=== PATIENT | male | born 1940 | race Caucasian/White ===

== ENCOUNTER → 2023-08-27 10:21 | Outpatient (REF) | payer OTHER, SELFPAY | LOC: RCS 10:21 | PROVIDERS: ATTENDING PHYSICIAN Physician Assistant Medical | DX: R42 Dizziness and giddiness (principal); E78.2 Mixed hyperlipidemia; R73.03 Prediabetes | CPT/HCPCS: 93225; 93226 ==

== ENCOUNTER → 2023-09-04 11:10 | Outpatient (REF) | payer OTHER, SELFPAY | LOC: RAD 11:10 | PROVIDERS: ATTENDING PHYSICIAN Physician Assistant Medical | DX: R42 Dizziness and giddiness (principal); E78.2 Mixed hyperlipidemia; R73.03 Prediabetes | CPT/HCPCS: 93880 ==

== ENCOUNTER 2024-05-15 22:38 | Inpatient (IN) | payer OTHER, SELFPAY ==
--- NOTE | 2024-05-15 19:20 | ED.GENMED ---
ED Provider Triage
<Luisa Burns PA-C - Last Filed: 05/15/24 19:25>
-
Patient seen by provider in Triage?: Seen in Triage
Attestation: A medical screening examination has been initiated by a qualified medical provider. Based on the assessment performed at this time, it has been determined that an emergent medical condition may exist and the patient has been informed
that further medical evaluation and possible additional diagnostic testing may be needed.
HPI: 83yoM here with a temp of 100.2 at home today. Also having confusion and balance issues. Casas catheter in place x 1 month, reinserted several times after voiding trials. Current catheter placed 3 days ago. Urine culture sent yesterday at
urology office.
GENERAL: Alert , in no apparent distress
EYE: No visual abnormalities.
NECK: Trachea midline
ENT: No visible abnormalities.
LUNGS: No acute respiratory distress
NEUROLOGICAL: Alert and oriented
SKIN: Skin intact. No visible changes.
MUSCULOSKELETAL: Moving extremities normally
PSYCH: Normal and appropriate interaction.
This is a medical evaluation conducted in person to initiate diagnostic evaluation and provide initial therapeutics. Please see further documentation by the treating clinician.
CBC, CMP, lactate, UA ordered.
History of Present Illness
<Luisa Burns PA-C - Last Filed: 05/15/24 19:25>
General
Chief Complaint: Fever
Time Seen by Provider: 05/15/24 19:56
<Harry Li Jr., PA-C - Last Filed: 05/15/24 22:27>
General
Source: patient
Exam Limitations: none
Nursing documentation reviewed up to this point in time: agreed with
History of Present Illness
History of Present Illness:
83-year-old male with past medical history of chronic Casas and urinary retention, BPH, hypothyroidism presenting to the emergency department today with concerns of fever confusion fatigue worsening since last night. Temperature of 100.2 at home.
Has had many UTIs in the past. Has noticed some increasing cloudiness in changes to his urine today.
Past History
<Luisa Burns PA-C - Last Filed: 05/15/24 19:25>
Past History
ED Past Medical History: Cancer (Basal cell CA), Hypercholesterolemia, Hypothyroidism and Other (GI bleeding. Renal calculus)
ED Past Surgical History: Urological (Stone removed from bladder) and Other (Hernia); Negative Cardiac
Social History
Tobacco: Non-smoker
Alcohol: None
Drug: None
Personal:
Living: with family
Employment: Retired
Family History
Family History: Hypertension
Review of Systems
<Harry Li Jr., PA-C - Last Filed: 05/15/24 22:27>
Review of Systems
Allergies reviewed?: Yes
All Other Systems: ROS reviewed and negative except as documented in HPI and ROS
Phy Exam
<Harry Li Jr., PA-C - Last Filed: 05/15/24 22:27>
Physical Exam
Physical Exam:
GENERAL: Alert , in no apparent distress
EYE: pupils equal and reactive
NECK: Supple, no significant adenopathy.
ENT: o/p clr, mmm.
CARDIAC: Regular rate and rhythm .
LUNGS: Clear breath sounds bilaterally, no acute respiratory distress, no wheezes/rales/rhonchi
ABDOMEN: Casas in place cloudy dark yellow urine soft, without focal tenderness, no r/g, no cvat
NEUROLOGICAL: Alert and oriented, no focal neuro deficits
SKIN: Warm and dry, skin intact.
MUSCULOSKELETAL: No edema, well perfused.
PSYCH: Normal and appropriate interaction.
Course
<Luisa Burns PA-C - Last Filed: 05/15/24 19:25>
Orders/Labs/Results
Orders:
Orders
05/15/24 19:37
Complete Blood Count/With Diff Urgent
Comprehensive Metabolic Panel Urgent
Lactate Level [Lactic Acid] Urgent
05/15/24 20:17
Urinalysis Reflex To Culture Urgent
Date Specimen was Collected: 05/15/24
Time Specimen was Collected: 19:59
Urine Microscopic Reflex Cult Urgent
Urine Culture Urgent
KEVIN Source: U
Specimen Description:
Date Specimen was Collected: 05/15/24
Time Specimen was Collected: 19:59
05/15/24 20:18
COVID-19 Antigen Urgent
Source: Nasal Swab
Influenza A+B Rapid Molecular Urgent
KEVIN Source: Nasal Swab
Specimen Description:
05/15/24 21:19
Urinalysis Reflex To Culture Urgent
Date Specimen was Collected: 05/15/24
Time Specimen was Collected: 21:17
Urine Microscopic Reflex Cult Urgent
Urine Culture Urgent
KEVIN Source: U
Specimen Description:
Date Specimen was Collected: 05/15/24
Time Specimen was Collected: 21:17
05/15/24 21:42
Cefepime HCl [Maxipime] 2,000 mg IV NOW STA
05/15/24 22:30
0.9% Sodium Chloride 1000 ml [Nss] 1,000 ml IV 100 mls/hr
Abnormal Lab Results
05/15/24 05/15/24 05/15/24
19:37 20:17 21:19
WBC 14.0 H 10^3/uL
(4.8-10.8)
RBC 3.43 L 10^6/uL
(4.70-6.10)
Hgb 11.2 L g/dL
(13.0-18.0)
Hct 34.8 L %
(39.0-52.0)
MCV 101.5 H fL
(80.0-94.0)
MCH 32.7 H pg
(27.0-31.0)
MCHC 32.2 L g/dL
(33.0-37.0)
Abs Immat Gran (auto) 0.1 H 10^3/uL
(0-0.05)
Absolute Neuts (auto) 11.1 H 10^3/uL
(1.4-6.5)
Absolute Monos (auto) 1.1 H 10^3/uL
(0.1-0.6)
Neutrophils % 79.4 H %
(42.2-75.2)
Lymphocytes % 10.5 L %
(20.5-51.1)
Creatinine 1.4 H mg/dL
(0.7-1.3)
Glucose 142 H mg/dl
(70-99)
Ur Occult Blood Reflex 4+ A 3+ A
(Negative) (Negative)
Urine Nitrite (Reflex) Positive A
(Negative)
Leukocyte Esterase Rfl 2+ A 2+ A
(Negative) (Negative)
Urine RBC 3-6 A /HPF
(0-2)
Urine WBC (Reflex) 90-100 A /HPF >100 A /HPF
(0-5) (0-5)
Urine Bacteria (Reflex) Many A
(Negative)
Urine Albumin (Reflex) 2+ A 1+ A
(Neg - Trace) (Neg - Trace)
05/15/24 19:37
05/15/24 19:37
Vital Signs
Initial and Last Documented VS:
Initial Vital Signs
Temp Pulse Resp BP Pulse Ox
98.3 F 71 16 120/61 98
05/15/24 19:21 05/15/24 19:21 05/15/24 19:21 05/15/24 19:21 05/15/24 19:21
Last Documented Vital Signs
Temp Pulse Resp BP Pulse Ox
98.3 F 66 18 99/63 97
05/15/24 19:21 05/15/24 22:15 05/15/24 22:15 05/15/24 22:00 05/15/24 22:15
<Harry Li Jr., PA-C - Last Filed: 05/15/24 22:27>
Orders/Labs/Results
Orders:
Orders
05/15/24 19:37
Complete Blood Count/With Diff Urgent
Comprehensive Metabolic Panel Urgent
Lactate Level [Lactic Acid] Urgent
05/15/24 20:17
Urinalysis Reflex To Culture Urgent
Date Specimen was Collected: 05/15/24
Time Specimen was Collected: 19:59
Urine Microscopic Reflex Cult Urgent
Urine Culture Urgent
KEVIN Source: U
Specimen Description:
Date Specimen was Collected: 05/15/24
Time Specimen was Collected: 19:59
05/15/24 20:18
COVID-19 Antigen Urgent
Source: Nasal Swab
Influenza A+B Rapid Molecular Urgent
KEVIN Source: Nasal Swab
Specimen Description:
05/15/24 21:19
Urinalysis Reflex To Culture Urgent
Date Specimen was Collected: 05/15/24
Time Specimen was Collected: 21:17
Urine Microscopic Reflex Cult Urgent
Urine Culture Urgent
KEVIN Source: U
Specimen Description:
Date Specimen was Collected: 05/15/24
Time Specimen was Collected: 21:17
05/15/24 21:42
Cefepime HCl [Maxipime] 2,000 mg IV NOW STA
05/15/24 22:30
0.9% Sodium Chloride 1000 ml [Nss] 1,000 ml IV 100 mls/hr
Abnormal Lab Results
05/15/24 05/15/24 05/15/24
19:37 20:17 21:19
WBC 14.0 H 10^3/uL
(4.8-10.8)
RBC 3.43 L 10^6/uL
(4.70-6.10)
Hgb 11.2 L g/dL
(13.0-18.0)
Hct 34.8 L %
(39.0-52.0)
MCV 101.5 H fL
(80.0-94.0)
MCH 32.7 H pg
(27.0-31.0)
MCHC 32.2 L g/dL
(33.0-37.0)
Abs Immat Gran (auto) 0.1 H 10^3/uL
(0-0.05)
Absolute Neuts (auto) 11.1 H 10^3/uL
(1.4-6.5)
Absolute Monos (auto) 1.1 H 10^3/uL
(0.1-0.6)
Neutrophils % 79.4 H %
(42.2-75.2)
Lymphocytes % 10.5 L %
(20.5-51.1)
Creatinine 1.4 H mg/dL
(0.7-1.3)
Glucose 142 H mg/dl
(70-99)
Ur Occult Blood Reflex 4+ A 3+ A
(Negative) (Negative)
Urine Nitrite (Reflex) Positive A
(Negative)
Leukocyte Esterase Rfl 2+ A 2+ A
(Negative) (Negative)
Urine RBC 3-6 A /HPF
(0-2)
Urine WBC (Reflex) 90-100 A /HPF >100 A /HPF
(0-5) (0-5)
Urine Bacteria (Reflex) Many A
(Negative)
Urine Albumin (Reflex) 2+ A 1+ A
(Neg - Trace) (Neg - Trace)
05/15/24 19:37
05/15/24 19:37
Vital Signs
Initial and Last Documented VS:
Initial Vital Signs
Temp Pulse Resp BP Pulse Ox
98.3 F 71 16 120/61 98
05/15/24 19:21 05/15/24 19:21 05/15/24 19:21 05/15/24 19:21 05/15/24 19:21
Last Documented Vital Signs
Temp Pulse Resp BP Pulse Ox
98.3 F 66 18 99/63 97
05/15/24 19:21 05/15/24 22:15 05/15/24 22:15 05/15/24 22:00 05/15/24 22:15
<Harry Li Jr., PA-C - Last Filed: 05/15/24 22:27>
MDM/Problems Addressed
MDM/Problems Addressed:
83-year-old male presenting to the emergency department today with concerns of fever at home confusion. Vital signs normal on arrival white count of 14 with left shift. Slight elevation of creatinine level from baseline this typically 1.1 today
1.4. Initial urinalysis appears consistent with infection. Casas was replaced. Repeated urine sent still appears infected we will start IV antibiotics considering patient's systemic symptoms confusion for IV antibiotics and monitoring overnight.
<Harry Li Jr., PA-C - Last Filed: 05/15/24 22:27>
*Critical Care Note
Total Time (30-74mins, 75-104mins- exclusive of procedures): Not Applicable
ED Attending Note
<Luisa Burns PA-C - Last Filed: 05/15/24 19:25>
-
Portions of this chart may have been created with voice recognition software.� Occasional wrong word or��sound alike� substitutions may have occurred due to the inherent limitations of voice recognition software.
Discharge Plan
Departure
Patient Disposition: Admit
Date of Disposition: 05/15/24
Time of Disposition: 22:27
Admit to: Med/Surg
Admit to doctor: Baldo
Presentation/result/management discussed w/ accepting MD/DO: Hospitalist
Patient with high blood pressure during this ER visit?: No
Condition: Good
Covid-19: Not Applicable
Discharge Problem:
Acute UTI
Prescriptions:
No Action
atorvastatin [Lipitor] 10 MG tablet
10 mg PO HS
sennosides [senna] 8.6 mg Tablet
8.6 mg PO Q48H
donepezil 10 mg Tablet
10 mg PO HS
cyanocobalamin (vitamin B-12) 1,000 mcg Tablet
1,000 mcg PO DAILY
Theragen Tablet
1 tab PO DAILY
ciprofloxacin HCl [Cipro] 500 mg Tablet
500 mg PO BID
levothyroxine 125 mcg Tablet
125 mcg PO HS
lansoprazole [Prevacid] 30 mg Capsule,Delayed Release(Dr/Ec)
30 mg PO DAILY
Referrals:
Esequiel Singh MD [Family Provider] -
Interventions
Interventions:
*Risk Screen - Suicide Last Done: 05/15/24 19:21
*General Assessment Last Done: 05/15/24 19:21
*Neglect/Abuse Screening Last Done: 05/15/24 19:21
ED- Fall Risk Assessment Last Done: 05/15/24 20:23
*ED COVID-19 Vaccine History Last Done: 05/15/24 19:21
ED- Neurological Assessment Last Done: 05/15/24 20:23
ED-Skin Assessment Last Done: 05/15/24 20:23
Discharge Date and Time
Print Language: SPANISH
[2024-05-15 19:21] VITALS: BP 120/61
[2024-05-15 19:46] LABS: % Basophils 0.4 % (0-2); % Eosinophils 1.4 % (0-6); % Immature Granulocytes 0.4 % (0-0.5); % Lymphocytes 10.5 % (20.5-51.1); % Monocytes 7.9 % (1.7-9.3); % Neutrophils 79.4 % (42.2-75.2); Absolute Basophils 0.1 10^3/uL (0-0.2); Absolute Eosinophils 0.2 10^3/uL (0-0.7); Absolute Immature Granulocytes 0.1 10^3/uL (0-0.05); Absolute Lymphocytes 1.5 10^3/uL (1.2-3.4); Absolute Monocytes 1.1 10^3/uL (0.1-0.6); Absolute Neutrophils 11.1 10^3/uL (1.4-6.5); Hematocrit 34.8 % (39.0-52.0); Hemoglobin 11.2 g/dL (13.0-18.0); Mean Corp Hgb Conc. 32.2 g/dL (33.0-37.0); Mean Corpuscular Hgb 32.7 pg (27.0-31.0); Mean Corpuscular Volume 101.5 fL (80.0-94.0); Mean Platelet Volume 9.3 fL (7.4-10.4); Nucleated Red Blood Cells % 0 % (-); Platelet Count 258 10^3/uL (130-400); Red Blood Cell Count 3.43 10^6/uL (4.70-6.10); Red Cell Dist. Width 12.7 % (11.5-14.5)
[2024-05-15 19:55] LABS: Lactic Acid 1.2 mmol/L (0.7-2.0)
[2024-05-15 20:04] LABS: ALT (SGPT) 13 U/L (0-50); AST (SGOT) 20 U/L (17-59); Albumin 3.7 g/dl (3.5-5.0); Alkaline Phosphatase 107 U/L (38-126); Blood Urea Nitrogen 20 mg/dl (9-20); Calcium 8.8 mg/dl (8.4-10.2); Carbon Dioxide 30 mmol/L (22-30); Chloride 99 mmol/L (98-107); Glucose 142 mg/dl (70-99); Potassium 4.3 mmol/L (3.5-5.1); Sodium 136 mmol/L (135-145); Total Bilirubin 0.5 mg/dl (0.2-1.3); Total Protein 6.8 g/dl (6.3-8.2); eGFR 49.56
[2024-05-15 20:09] VITALS: BP 101/55; BMI 26.4
[2024-05-15 20:29] LABS: Urine Albumin 2+ (Neg - Trace); Urine Bilirubin Negative (Negative); Urine Character Slightly Cloudy (Clear); Urine Color Yellow; Urine Glucose Negative (Negative); Urine Ketone Negative (Negative); Urine Leukocyte 2+ (Negative); Urine Nitrite Positive (Negative); Urine Occult Blood 4+ (Negative); Urine Urobilinogen Negative (Neg - 1+)
[2024-05-15 20:35] LABS: Urine Squamous Cell 0-2 /LPF (Few)
[2024-05-15 20:36] LABS: Urine Bacteria Many (Negative); Urine White Cell 90-100 /HPF (0-5)
[2024-05-15 20:50] LABS: COVID-19 Antigen Negative (Negative)
[2024-05-15 21:00] VITALS: BP 100/57
[2024-05-15 21:28] LABS: Urine Albumin 1+ (Neg - Trace); Urine Bilirubin Negative (Negative); Urine Character Slightly Cloudy (Clear); Urine Color Yellow; Urine Glucose Negative (Negative); Urine Ketone Negative (Negative); Urine Leukocyte 2+ (Negative); Urine Nitrite Negative (Negative); Urine Occult Blood 3+ (Negative); Urine Specific Gravity 1.015 (<1.030); Urine Urobilinogen Negative (Neg - 1+)
[2024-05-15 21:48] LABS: Urine White Cell >100 /HPF (0-5)
--- NOTE | 2024-05-15 21:58 | HPS.HSE ---
Addendum entered and electronically signed by Chicho Bland DO 05/15/24 23:41:
Patient seen and examined independently. Agree with findings and plan as set forth by Soumya Cortez PA-C.
Patient is an 83y M with PMH significant for BPH, dementia and hypothyroidism who presents to ED for evaluation of fever and confusion. History obtained from patient and his at the bedside. Patient admitted to [place] in April due to
ear cellulitis. That hospitalization was complicated by urinary retention and Casas was placed. He was then admitted to [facility] for fecal impaction - Casas was maintained. He was seen in local Urology office Saturday and had a failed voiding trial
with removal and subsequent replacement of Casas.
Last PM, patient became significantly confused and disoriented. Today he remained somewhat confused and his noted a temperature at home of 100.2 prompting them to present to the ED for further evaluation.
Casas was exchanged in the ED here and is currently draining cloudy urine with sediment.
Patient is flushed appearing, but awake and alert.
Ass:
CAUTI
Acute TME secondary to the above
BPH
Senile Dementia
Hypothyroidism
Plan:
Admit for further evaluation and treatment.
IV abx and follow-up culture data.
Casas was exchanged in the ED.
IVF support.
Follow fever curve.
Follow for clinical improvement.
Close observation / fall precautions given baseline dementia and propensity to 'get up' according to his .
Maintain Casas catheter and follow-up with Urology as an outpatient.
Original Note:
Family Physician
-
Family Physician: Esequiel Singh
Chief Complaint
-
Fever and Confusion
History of Present Illness
Patient is an 83 y/o male past medical history of dementia, and BPH who presents with fever and confusion. Additional history is obtained from patient's at the bedside. Patient was admitted to [facility] in early April with left ear
cellulitis following an extensive Moh's surgery. During that hospitalization patient developed urinary retention and was discharged with a Casas. Shortly afterwards patient was admitted to [facility] due to fecal impaction. Since that
hospitalization patient has seen his Urologist, Dr. Ochoa, and has had several unsuccessful voiding trails, most recently earlier this week. Last evening patient developed increasing confusion, and today and low grade fever 100.2F prompting his
to bring him to the emergency department for evaluation.
Medical History
Past Medical History
Past Medical History: Reports Other
Additional Past Medical History:
Dementia
Hyperlipidemia
Hypothyroidism
Nephrolithiasis
Bladder Stone
BPH
Recurrent Urinary Retention
GERD
Past Surgical History: Reports Other
Additional Past Surgical History:
Left Ureteral Stone Lithotripsy
TURP
Cystolitholapaxy
Right Inguinal Hernia Repair
Social History
Tobacco: Non-smoker
Drug: None
Personal:
Employment: Retired
Family History
Family History: Not pertinent
Allergies / Home Medications
Allergies reflects when Allergies were last updated in [employer].
Home Medications with original date entered in [employer]
Allergy/Medication List:
Allergies
Allergy/AdvReac Type Severity Reaction Status Date / Time
sulfamethoxazole Allergy Unknown Verified 05/15/24 19:26
[From Bactrim]
trimethoprim [From Bactrim] Allergy Unknown Verified 05/15/24 19:26
Home Medications
atorvastatin 10 mg tablet (Lipitor) 10 mg PO HS High cholesterol 08/31/20
ciprofloxacin HCl 500 mg tablet (Cipro) 500 mg PO BID 05/15/24
cyanocobalamin (vitamin B-12) 1,000 mcg tablet 1,000 mcg PO DAILY 05/15/24
donepezil 10 mg tablet 10 mg PO HS 05/15/24
lansoprazole 30 mg capsule,delayed release (Prevacid) 30 mg PO DAILY 05/15/24
levothyroxine 125 mcg tablet 125 mcg PO HS 05/15/24
sennosides 8.6 mg tablet (senna) 8.6 mg PO Q48H 05/15/24
therapeutic multivitamin 1 tab PO DAILY 05/15/24
Review of Systems
-
Unable to obtain full review of systems at this time due to: Dementia
Respiratory: Denies Cough or Trouble Breathing
Cardiac: Denies Chest Pain or Palpitations
: Reports See HPI
Physical Exam
Vital Signs
Vital Signs
Temp Pulse Resp BP Pulse Ox
98.3 F 71 29 101/55 95
05/15/24 19:21 05/15/24 20:15 05/15/24 20:15 05/15/24 20:09 05/15/24 20:15
Physical Exam
General: Comfortable, Conversant and Other (Appears flushed)
HEENT: Anicteric and Moist mucous membranes
Respiratory: Clear and Non Labored Respirations
Cardiac: S1/S2 and Regular Rhythm
GI: Soft and Non Tender
Genito-urinary: Casas (Cloudy urne)
Musculoskeletal: No Clubbing, No Cyanosis and No Edema
Skin: Warm and Dry
Neuro: Awake, Alert, Oriented and Nonfocal/grossly intact
Psych: Calm
Laboratory Results
-
05/15/24 19:37
05/15/24 19:37
Laboratory Results
Lactic Acid 1.2 mmol/L (0.7-2.0) 05/15/24 19:37
Total Bilirubin 0.5 mg/dl (0.2-1.3) 05/15/24 19:37
AST 20 U/L (17-59) 05/15/24 19:37
ALT 13 U/L (0-50) 05/15/24 19:37
Alkaline Phosphatase 107 U/L (38-126) 12/13/24 19:37
Data Reviewed
-
Lab Data: Labs Reviewed by me
Impression/Plan
-
TME secondary to Catheter Associated Urinary Tract Infection
-Continue Cefepime
-Await urine culture
Dementia
-Continue Aricept
-Monitor for mood/behavior changes during hospitalization
Hyperlipidemia
-Continue atorvastatin
Hypothyroidism
-Continue levothyroxine
DVT proph: Lovenox
Code Status: Full Code
[2024-05-15 22:00] VITALS: BP 99/63
[2024-05-15] MEDS: MAXIPIME 2000 MG IV (22:07)
[2024-05-15] MEDS: NSS 1000 IV (22:29)
[2024-05-15] MEDS: TYLENOL 650 MG PO (22:43)
[2024-05-15 23:00] VITALS: BP 129/61
[2024-05-15 23:52] VITALS: BP 143/74
[2024-05-15 23:58] VITALS: BMI 25.0
[2024-05-16] MEDS: SENOKOT 8.6 MG PO (00:23)
--- NOTE | 2024-05-16 01:24 | PTCARENOTE ---
Received patient from ED via stretcher with spouse at bedside. Telemetry orders> NSR on monitor, afebrile, HR 69, RR 18, BP 143/74, pox 93% room air. No c/o pain. AAOx3 PMH dementia-bed alarm placed. IVF infusing through #20 RAC. Indwelling villareal
catheter draining yellow urine. PMH and medications reviewed by this RN and patient/ spouse. Plan of care discussed and all questions answered. Patient oriented to room. Call new within reach.
[2024-05-16 07:00] VITALS: BP 107/52
[2024-05-16 07:55] LABS: Hematocrit 34.2 % (39.0-52.0); Mean Corp Hgb Conc. 32.2 g/dL (33.0-37.0); Mean Corpuscular Hgb 32.6 pg (27.0-31.0); Mean Corpuscular Volume 101.5 fL (80.0-94.0); Mean Platelet Volume 9.7 fL (7.4-10.4); Platelet Count 247 10^3/uL (130-400); Red Blood Cell Count 3.37 10^6/uL (4.70-6.10); Red Cell Dist. Width 12.6 % (11.5-14.5); White Blood Cell Count 9.9 10^3/uL (4.8-10.8)
[2024-05-16 08:27] LABS: Blood Urea Nitrogen 17 mg/dl (9-20); Calcium 8.8 mg/dl (8.4-10.2); Carbon Dioxide 27 mmol/L (22-30); Chloride 106 mmol/L (98-107); Estimated Creatinine Clearance 44 ml/min; Glucose 106 mg/dl (70-99); Potassium 4.4 mmol/L (3.5-5.1); Sodium 142 mmol/L (135-145); eGFR 59.63
[2024-05-16] MEDS: PROTONIX 40 MG PO (08:35)
[2024-05-16] MEDS: MAXIPIME 1000 MG IV ×2 (09:56→21:35)
[2024-05-16 11:00] VITALS: BP 147/77
[2024-05-16 12:32] VITALS: BP 119/63; BP 94/60; PULSE 70; O2SAT 99
[2024-05-16 12:36] VITALS: BP 119/63; BP 94/60; PULSE 70; O2SAT 99
--- NOTE | 2024-05-16 13:35 | W.PN.HOSP.TC ---
Today's Communication/Plan
-
Continue IV cefepime
Follow cultures
CBC and temperature
Assessment / Plan
Assessment / Plan
#CAUTI
#BPH s/p TURP
-Presented with altered mental status, leukocytosis, known chronic Casas
-Urinalysis with significant pyuria and other infectious markers present
-Casas catheter was exchanged in the ED after urine sample obtained
-Was started on IV cefepime empirically, CBC downtrending
-Urine cultures taken prior to antibiotics; results pending
-Continue IV cefepime, follow-up culture, trend CBC and temperature curve
#Toxic metabolic encephalopathy
-Highly likely related to CAUTI, altered mental status on arrival
-Patient seems much more oriented and alert today, states he does not remember much from yesterday
-Appears resolved
#Dyslipidemia
-No known history of ASCVD, Home meds include statin therapy
#Hypothyroidism
-Unclear etiology, medications include levothyroxine
-No signs or symptoms of thyroid dysfunction at this time
#Stage IIIa CKD
-Creatinine near 1 at baseline, creatinine clearance 44, EGFR 60
-No known association such as anemia, bone mineral disease, acidemia
-Had mildly elevated creatinine on arrival, back to baseline as of this morning
#Dementia
-Seems fairly mild, patient was able to hold conversation and seemed oriented
-Home medications include donepezil
DVT prophylaxis: Lovenox
Diet: Regular
CODE STATUS: Full code
Anticipated Discharge: 24 - 48 hours
Subjective/Interval History
-
Date of Service: May 16, 2024
Seen and examined at the bedside. No acute events reported overnight. AFVSS of this morning
Mental status seems improved, patient states he does not remember much from admission yesterday.
Denies any acute complaints.
Objective Data
-
Labs:
Laboratory Results
05/16/24
06:45
WBC 9.9
Hgb 11.0 L
Hct 34.2 L
Plt Count 247
Sodium 142
Potassium 4.4
Chloride 106
Carbon Dioxide 27
BUN 17
Creatinine 1.2
Glucose 106 H
Calcium 8.8
Vital Signs:
Vital Signs
Temp Pulse Resp BP Pulse Ox
97.9 F 63 18 147/77 95
05/16/24 11:00 05/16/24 11:00 05/16/24 11:00 05/16/24 11:00 05/16/24 11:00
I&O
05/15/24 05/16/24 05/17/24
06:59 06:59 06:59
Output Total 2750 / 2750
Balance -2750 / -2750
Review of Systems
-
History Source: Patient
All other systems: Reviewed and negative
Physical Exam
-
General: Well Developed, Well Nourished, No Apparent Distress and Comfortable
HEENT: Normocephalic, Atraumatic, Moist Mucous Membranes and Anicteric
Respiratory: Clear to Auscultation and Non Labored Respirations
Cardiac: Regular Rhythm and S1/S2; Negative Murmur, Rub or Gallop
GI: Soft, Nontender, Nondistended and Normal Bowel Sounds
Genito-urinary: No Costovertebral Tender, Clear Urine and Casas
Musculoskeletal: No Clubbing, No Cyanosis and No Edema
Skin: Warm, Dry and Normal Turgor; Negative Rash
Neuro: AO x 3 and Nonfocal/Grossly Intact
Psych: Calm
Data Reviewed
-
Labs: Labs Reviewed by me and Discussed with Patient
--- NOTE | 2024-05-16 14:49 | CM ---
manager study reviewed patient's chart and met with patient and patient was admitted from [facility] independent living, patient is independent with adl's and ambulation, patient has a cane and walker that he does not use. Patient is
current with [facility] visiting nurses, will send referral to resume visiting nurse services at discharge.
PCP: Dr. Singh
Pharmacy: [facility]
Plan; Home with [facility] visiting nurses
[place]
[phone]
[2024-05-16 14:57] VITALS: BP 109/66
[2024-05-16] MEDS: LOVENOX 40 MG SC (17:10)
[2024-05-16] MEDS: LIPITOR 10 MG PO (21:35)
[2024-05-16] MEDS: ARICEPT 10 MG PO (21:35)
[2024-05-16] MEDS: SYNTHROID 125 MCG PO (21:35)
[2024-05-16] MEDS: STERILE WATER FOR INJECTION 10 ML IV (21:36)
[2024-05-16 22:43] VITALS: BP 147/82
[2024-05-17 06:59] LABS: % Basophils 0.7 % (0-2); % Eosinophils 7.1 % (0-6); % Immature Granulocytes 0.3 % (0-0.5); % Lymphocytes 19.4 % (20.5-51.1); % Monocytes 8.5 % (1.7-9.3); Absolute Basophils 0.1 10^3/uL (0-0.2); Absolute Eosinophils 0.5 10^3/uL (0-0.7); Absolute Lymphocytes 1.4 10^3/uL (1.2-3.4); Absolute Monocytes 0.6 10^3/uL (0.1-0.6); Absolute Neutrophils 4.8 10^3/uL (1.4-6.5); Hematocrit 33.7 % (39.0-52.0); Mean Corp Hgb Conc. 32.6 g/dL (33.0-37.0); Mean Corpuscular Hgb 32.4 pg (27.0-31.0); Mean Corpuscular Volume 99.4 fL (80.0-94.0); Mean Platelet Volume 9.7 fL (7.4-10.4); Nucleated Red Blood Cells % 0 % (-); Platelet Count 274 10^3/uL (130-400); Red Blood Cell Count 3.39 10^6/uL (4.70-6.10); Red Cell Dist. Width 12.3 % (11.5-14.5); White Blood Cell Count 7.4 10^3/uL (4.8-10.8)
[2024-05-17 07:00] VITALS: BP 141/63
[2024-05-17 07:19] LABS: Blood Urea Nitrogen 19 mg/dl (9-20); Carbon Dioxide 29 mmol/L (22-30); Chloride 103 mmol/L (98-107); Estimated Creatinine Clearance 44 ml/min; Glucose 112 mg/dl (70-99); Potassium 4.1 mmol/L (3.5-5.1); Sodium 140 mmol/L (135-145); eGFR 59.63
[2024-05-17] MEDS: PROTONIX 40 MG PO (08:19)
[2024-05-17] MEDS: MAXIPIME 1000 MG IV ×2 (09:15→21:07)
[2024-05-17] MEDS: STERILE WATER FOR INJECTION 10 ML IV ×2 (09:16→21:07)
[2024-05-17 11:00] VITALS: BP 151/66
--- NOTE | 2024-05-17 11:26 | W.PN.HOSP.TC ---
Today's Communication/Plan
-
Continue IV cefepime and follow urine culture
Maintain Casas catheter
CBC and temperature
Assessment / Plan
Assessment / Plan
#CAUTI
#BPH s/p TURP
-Presented with altered mental status, leukocytosis, known chronic Casas
-Urinalysis with significant pyuria and other infectious markers present
-Casas catheter was exchanged in the ED after urine sample obtained
-Was started on IV cefepime empirically, CBC downtrending
-Urine cultures taken prior to antibiotics; results pending
-Continue IV cefepime, follow-up culture, trend CBC and temperature curve
#Toxic metabolic encephalopathy
-Highly likely related to CAUTI, altered mental status on arrival
-Patient seems much more oriented and alert today, states he does not remember much from yesterday
-Appears resolved
#Dyslipidemia
-No known history of ASCVD, Home meds include statin therapy
#Hypothyroidism
-Unclear etiology, medications include levothyroxine
-No signs or symptoms of thyroid dysfunction at this time
#Stage IIIa CKD
-Creatinine near 1 at baseline, creatinine clearance 44, EGFR 60
-No known association such as anemia, bone mineral disease, acidemia
-Had mildly elevated creatinine on arrival, back to baseline as of this morning
#Dementia
-Seems fairly mild, patient was able to hold conversation and seemed oriented
-Home medications include donepezil
DVT prophylaxis: Lovenox
Diet: Regular
CODE STATUS: Full code
Anticipated Discharge: Within 24 hours
Subjective/Interval History
-
Date of Service: May 17, 2024
Seen and examined at the bedside. No acute events reported overnight. AFVSS this
Leukocytosis resolved. Urine culture still pending. Patient asking to go home
Denies any acute complaint
Objective Data
-
Labs:
Laboratory Results
05/17/24
06:15
WBC 7.4
Hgb 11.0 L
Hct 33.7 L
Plt Count 274
Sodium 140
Potassium 4.1
Chloride 103
Carbon Dioxide 29
BUN 19
Creatinine 1.2
Glucose 112 H
Calcium 9.0
Vital Signs:
Vital Signs
Temp Pulse Resp BP Pulse Ox
98.3 F 74 18 141/63 97
05/17/24 07:00 05/17/24 07:00 05/17/24 07:00 05/17/24 07:00 05/17/24 08:25
I&O
05/16/24 05/17/24 05/18/24
06:59 06:59 06:59
Intake Total 600 / 600
Output Total 2750 / 2750 1050 / 1050
Balance -2750 / -2750 -450 / -450
Review of Systems
-
History Source: Patient
All other systems: Reviewed and negative
Physical Exam
-
General: Well Developed, Well Nourished, No Apparent Distress and Comfortable
HEENT: Normocephalic, Atraumatic, Moist Mucous Membranes and Anicteric
Respiratory: Clear to Auscultation and Non Labored Respirations
Cardiac: Regular Rhythm and S1/S2; Negative Murmur, Rub or Gallop
GI: Soft, Nontender, Nondistended and Normal Bowel Sounds
Genito-urinary: No Costovertebral Tender, Clear Urine and Casas
Musculoskeletal: No Clubbing, No Cyanosis and No Edema
Skin: Warm and Dry; Negative Rash
Neuro: AO x 3 and Nonfocal/Grossly Intact
Psych: Calm
Data Reviewed
-
Labs: Labs Reviewed by me, Discussed with Nurse and Discussed with Patient
[2024-05-17] MEDS: MIRALAX 17 GRAMS PO (12:37)
[2024-05-17 15:00] VITALS: BP 125/65
[2024-05-17] MEDS: BENADRYL 50 MG PO (15:48)
[2024-05-17] MEDS: LOVENOX 40 MG SC (17:03)
[2024-05-17] MEDS: SYNTHROID 125 MCG PO (21:05)
[2024-05-17] MEDS: LIPITOR 10 MG PO (21:05)
[2024-05-17] MEDS: ARICEPT 10 MG PO (21:05)
[2024-05-17] MEDS: SENOKOT 8.6 MG PO (21:07)
[2024-05-17 22:59] VITALS: BP 116/65
[2024-05-18 03:26] VITALS: BP 145/75
[2024-05-18 07:10] VITALS: BP 141/79
[2024-05-18 08:14] LABS: % Basophils 0.7 % (0-2); % Immature Granulocytes 0.4 % (0-0.5); % Lymphocytes 19.3 % (20.5-51.1); % Neutrophils 60.6 % (42.2-75.2); Absolute Basophils 0.1 10^3/uL (0-0.2); Absolute Eosinophils 0.7 10^3/uL (0-0.7); Absolute Lymphocytes 1.3 10^3/uL (1.2-3.4); Absolute Monocytes 0.6 10^3/uL (0.1-0.6); Absolute Neutrophils 4.2 10^3/uL (1.4-6.5); Hematocrit 35.1 % (39.0-52.0); Hemoglobin 11.5 g/dL (13.0-18.0); Mean Corp Hgb Conc. 32.8 g/dL (33.0-37.0); Mean Corpuscular Hgb 32.2 pg (27.0-31.0); Mean Corpuscular Volume 98.3 fL (80.0-94.0); Mean Platelet Volume 9.6 fL (7.4-10.4); Nucleated Red Blood Cells % 0 % (-); Platelet Count 287 10^3/uL (130-400); Red Blood Cell Count 3.57 10^6/uL (4.70-6.10); Red Cell Dist. Width 12.2 % (11.5-14.5); White Blood Cell Count 6.9 10^3/uL (4.8-10.8)
[2024-05-18] MEDS: PROTONIX 40 MG PO (08:22)
[2024-05-18 08:39] LABS: Blood Urea Nitrogen 16 mg/dl (9-20); Calcium 9.2 mg/dl (8.4-10.2); Carbon Dioxide 30 mmol/L (22-30); Chloride 102 mmol/L (98-107); Estimated Creatinine Clearance 44 ml/min; Glucose 106 mg/dl (70-99); Potassium 4.2 mmol/L (3.5-5.1); Sodium 140 mmol/L (135-145); eGFR 59.63
[2024-05-18] MEDS: STERILE WATER FOR INJECTION 10 ML IV ×2 (09:58→21:14)
[2024-05-18] MEDS: MAXIPIME 1000 MG IV ×2 (09:58→21:15)
[2024-05-18] MEDS: MIRALAX 17 GRAMS PO (10:04)
--- NOTE | 2024-05-18 11:04 | PHA.VAN.IN ---
Assessment
- Assessment
Renal Function: Appears similar to baseline
Concomitant Antimicrobials: cefepime
Plan
- Plan
Initial / Loading Dose: 2000mg - administration pending
Maintenance Regimen: dosing by level
Monitoring: random 05/19 600
Pharmacokinetics Vancomycin I
- -
Patient Age: 83
Patient Sex: Male
Vancomycin Day #: 1
Indication: Genito-Urinary Tract
Requesting Provider: Dr. Fields
Pertinent Antimicrobial Allergies:
sulfamethoxazole/trimethoprim - unknown
Height / Weight:
Height 5 ft 8 in
Actual Weight 74.616 kg
Pertinent Past Medical History: CKD
- Vital Signs / Lab Results
Temp Pulse Resp BP Pulse Ox
97.6 F 66 18 141/79 95
05/18/24 07:10 05/18/24 07:10 05/18/24 07:10 05/18/24 07:10 05/18/24 08:20
Lab Results - Hematology
05/15/24 05/16/24 05/17/24
19:37 06:45 06:15
WBC 14.0 H 9.9 7.4
05/18/24
07:32
WBC 6.9
Lab Results - Chemistry
05/15/24 05/16/24 05/17/24
19:37 06:45 06:15
BUN 20 17 19
Creatinine 1.4 H 1.2 1.2
Estimated Creat Clear 44 44
Albumin 3.7
05/18/24
07:32
BUN 16
Creatinine 1.2
Estimated Creat Clear 44
Albumin
05/15/24
19:37
Lactic Acid 1.2
Lab Results - Urine
05/15/24 05/15/24
20:17 21:19
Urine Nitrite (Reflex) Positive A Negative
Leukocyte Esterase Rfl 2+ A 2+ A
Urine WBC (Reflex) 90-100 A >100 A
Ur Squamous Epith Cells 0-2
Urine Bacteria (Reflex) Many A
Microbiology Results
05/15/24 21:19 Urine Culture - Preliminary
Urine Gram negative bacilli
Enterococcus species
--- NOTE | 2024-05-18 11:18 | W.PN.HOSP.TC ---
Today's Communication/Plan
-
consult ID
Assessment / Plan
Assessment / Plan
Assessment:
CAUTI POA
Hx of BPH s/p TURP
- chronic Casas exchanged in ER
- Culture growing gram negative bacilli and Enterococcus
- continue Cefepime, add Vancomycin. Consult ID
- supposedly planned for cystoscopy 05/25, likely will be deferred - TT'd to Dr. Ochoa
Toxic metabolic encephalopathy from UTI
Hx of Dementia - unknown subtype
- resolved, monitor
- continue donepezil
HLD
- statin
Hypothyroidism
- continue replacement
CKD stage 3a
DVT ppx: Lovenox
Code: Full
Anticipated Discharge: 24 - 48 hours
Subjective/Interval History
-
Date of Service: May 18, 2024
no complaints
Objective Data
-
Labs:
Laboratory Results
05/18/24
07:32
WBC 6.9
Hgb 11.5 L
Hct 35.1 L
Plt Count 287
Sodium 140
Potassium 4.2
Chloride 102
Carbon Dioxide 30
BUN 16
Creatinine 1.2
Glucose 106 H
Calcium 9.2
Vital Signs:
Vital Signs
Temp Pulse Resp BP Pulse Ox
97.6 F 66 18 141/79 95
05/18/24 07:10 05/18/24 07:10 05/18/24 07:10 05/18/24 07:10 05/18/24 08:20
I&O
05/17/24 05/18/24 05/19/24
06:59 06:59 06:59
Intake Total 600 / 600 360 / 360
Output Total 1050 / 1050 1750 / 1750
Balance -450 / -450 -1390 / -1390
Physical Exam
-
General: No Apparent Distress
HEENT: Normocephalic and Atraumatic
Respiratory: Negative Wheezes
Cardiac: Regular Rhythm and S1/S2
GI: Soft
Genito-urinary: No Costovertebral Tender
Musculoskeletal: No Edema
Neuro: AO x 3
Hematologic / Lymphatic: No Lymphadenopathy
Psych: Calm
Data Reviewed
-
Total Time Spent with Patient (in minutes): 44
Labs: Labs Reviewed by me
[2024-05-18] MEDS: VANCOCIN 540 MG IV (11:22)
[2024-05-18 11:42] VITALS: BP 131/70
--- NOTE | 2024-05-18 13:46 | CON.ID ---
Consultation
-
Date/Time Consultation Requested: 05/18/2024 1124
Date/Time Consultation Performed: 05/18/2024 1337
Requesting Provider: Dr. Fields
Performing Provider: Dr. Mancini
Reason for Consultation: CAUTI
Chief Complaint / Past History
History of Present Illness
Isrrael Lloyd is an 83-year-old man being evaluated at the request of Dr. Fields regarding a complicated urinary tract infection. History is obtained from chart review, along with patient interview.
The patient has a significant past medical history of chronic Casas catheter secondary to BPH and urinary retention and he presented to the ER on 05/15 secondary to fever, increasing confusion and fatigue over the prior 12 to 24 hours. He
reportedly had a temperature of 100.2 degrees at home. He has a history of many prior urinary tract infections in the past. ER notes indicate that increased cloudiness in urine was noted.
At admission, he was found to have a leukocytosis. He was placed on empiric antibiotics (cefepime). Today, urine cultures have revealed the presence of GNR's and Enterococcus. Infectious Diseases is asked to comment upon further antimicrobial
therapy. Since admission, the patient has had his chronic Casas changed.
Past History
Additional Past Medical History:
Dementia
Dyslipidemia
Hypothyroidism
Hx GI bleed
Nephrolithiasis / Bladder stone
Basal cell carcinoma
Additional Past Surgical History:
Left Ureteral Stone Lithotripsy
TURP
Cystolitholapaxy
Right Inguinal Hernia Repair
Allergy History:
sulfamethoxazole [From Bactrim] Allergy (Verified 05/15/24 19:26)
Unknown
Medications Reviewed: Yes
Current Antibiotics:
Cefepime 1 g IV every 12 hours
Vancomycin (dosing per pharmacy)
Social History
Tobacco: Non-Smoker
Alcohol: None
Drug: None
Personal:
Living: With Family
Employment: Retired
Family History
Family History: Not Pertinent
Review of Systems
Vital Signs
Temp Pulse Resp BP Pulse Ox
97.5 F 69 16 131/70 98
05/18/24 11:42 05/18/24 11:42 05/18/24 11:42 05/18/24 11:42 05/18/24 11:42
Physical Exam
Physical Exam
Constitutional: No Acute Distress, Comfortable and Non-toxic
Head: Normocephalic
Eyes: Pupils Equal, Pupils Round, No Conjunctival Hemorrhage and Sclera Anicteric
Cardiovascular: S1/S2; Negative S3/S4
Pulmonary: Clear; Negative Wheezes, Rales or Rhonchi
Gastrointestinal: Soft, Non Tender, Non Distended and Normal Bowel Sounds
Genito-Urinary: Casas and Clear Urine; Negative Turbid Urine or Hematuria
Extremities: Negative Edema, Cyanosis or Erythema
Skin: Warm and Dry; Negative Rash or Jaundice
Neurological: Awake and Alert
Psychological: Calm
Lab / Diagnostic Study Results
05/18/24 07:32
05/18/24 07:32
Abs Immat Gran (auto) 0.0 10^3/uL (0-0.05) 05/18/24 07:32
Absolute Neuts (auto) 4.2 10^3/uL (1.4-6.5) 05/18/24 07:32
Absolute Lymphs (auto) 1.3 10^3/uL (1.2-3.4) 05/18/24 07:32
Absolute Monos (auto) 0.6 10^3/uL (0.1-0.6) 05/18/24 07:32
Absolute Basos (auto) 0.1 10^3/uL (0-0.2) 05/18/24 07:32
Immature Gran % 0.4 % (0-0.5) 05/18/24 07:32
Neutrophils % 60.6 % (42.2-75.2) 05/18/24 07:32
Lymphocytes % 19.3 % (20.5-51.1) L 05/18/24 07:32
Monocytes % 9.0 % (1.7-9.3) 05/18/24 07:32
Eosinophils % 10.0 % (0-6) H 05/18/24 07:32
Basophils % 0.7 % (0-2) 05/18/24 07:32
Lactic Acid 1.2 mmol/L (0.7-2.0) 05/15/24 19:37
Ur Squamous Epith Cells /LPF (Few) 05/15/24 21:19
Microbiology Results
Micro:
05/15/24 21:19 Urine Culture - Preliminary
Urine Gram negative bacilli
Enterococcus species
05/15/24 20:18 Influenza Types A & B (KINJAL) - Final
Nasal Swab Negative for Influenza A & B, NAAT
Negative results must be combined with clinical observations
and patient history.
Nucleic Acid Amplification test (NAAT)performed on the
[employer] platform.
Assessment / Plan
Complicated urinary tract infection
Leukocytosis
Chronic Casas catheter
Urinary retention
Hx hypothyroidism
Hx GI bleed
Hx nephrolithiasis/bladder stone
Recommendations:
Continue with cefepime and vancomycin for the present.
Close monitoring of Vanco levels to be provide renal toxicity.
Will attempt to review urine cultures performed as an outpatient done within the past week.
Follow white count and temperature curve.
Care Review
Plan reviewed with: Physician (Hospitalist)
--- NOTE | 2024-05-18 14:06 | CM ---
Chart reviewed. ID consulted
Pt is current w/ [facility]
Currently on IV abx
CM will cont to follow for d/c planning
Plan: Home; [facility] kevin/ [facility]
[2024-05-18 15:28] VITALS: BP 125/70
[2024-05-18] MEDS: LOVENOX 40 MG SC (17:11)
[2024-05-18] MEDS: SYNTHROID PO ×2 (21:14→21:24)
[2024-05-18] MEDS: LIPITOR PO ×2 (21:14→21:24)
[2024-05-18] MEDS: ARICEPT PO ×2 (21:14→21:23)
[2024-05-18 23:24] VITALS: BP 152/85
[2024-05-19 07:54] VITALS: BP 92/63
[2024-05-19] MEDS: PROTONIX 40 MG PO (07:58)
[2024-05-19 08:07] LABS: Hematocrit 34.8 % (39.0-52.0); Hemoglobin 11.4 g/dL (13.0-18.0); Mean Corp Hgb Conc. 32.8 g/dL (33.0-37.0); Mean Corpuscular Hgb 32.4 pg (27.0-31.0); Mean Corpuscular Volume 98.9 fL (80.0-94.0); Mean Platelet Volume 9.7 fL (7.4-10.4); Platelet Count 298 10^3/uL (130-400); Red Blood Cell Count 3.52 10^6/uL (4.70-6.10); Red Cell Dist. Width 12.2 % (11.5-14.5); White Blood Cell Count 6.4 10^3/uL (4.8-10.8)
[2024-05-19 08:23] LABS: Vancomycin Random 11.5 ug/ml
--- NOTE | 2024-05-19 08:49 | PHA.VAN.FU ---
Vancomycin Assessment / Plan
- Assessment
Renal Function: Stable
WBC's are: WNL
In the past 24 hrs, patient has been: Afebrile
Concomitant Antimicrobials: cefepime
- Assessment - Therapeutic Drug Monitoring
Random Level: 11.5 - drawn ~19.H after 2g loading dose
- Dosing Plan
Dosing by Level: Re-dose today (Vanc 1000mg)
- Monitoring Plan
Random Level: 05/20 0600
- Follow Up
Pharmacy will continue to follow.
Vancomycin Follow UP
- -
Patient Age: 83
Patient Sex: Male
Vancomycin Day #: 2
Indication: Genito-Urinary Tract
Requesting Provider: Dr. Fields / [facility]
Pertinent Antimicrobial Allergies:
sulfamethoxazole/trimethoprim - unknown
Height / Weight:
Height 5 ft 8 in
Actual Weight 74.616 kg
Pertinent Past Medical History: CKD
- Vital Signs / Lab Results
Temp Pulse Resp BP Pulse Ox
97.5 F 65 16 92/63 95
05/19/24 07:54 05/19/24 07:54 05/19/24 07:54 05/19/24 07:54 05/19/24 07:54
Lab Results - Hematology
05/17/24 05/18/24 05/19/24
06:15 07:32 06:32
WBC 7.4 6.9 6.4
Lab Results - Chemistry
05/17/24 05/18/24
06:15 07:32
BUN 19 16
Creatinine 1.2 1.2
Estimated Creat Clear 44 44
Lab Results - Urine
05/15/24
21:19
Urine Nitrite (Reflex) Negative
Leukocyte Esterase Rfl 2+ A
Ur Squamous Epith Cells
Microbiology Results
05/15/24 21:19 Urine Culture - Preliminary
Urine Gram negative bacilli
Enterococcus species
Therapeutic Drug Monitoring
Random Vancomycin 11.5 ug/ml 05/19/24 06:32
[2024-05-19 08:54] LABS: Blood Urea Nitrogen 17 mg/dl (9-20); Calcium 9.1 mg/dl (8.4-10.2); Carbon Dioxide 28 mmol/L (22-30); Chloride 102 mmol/L (98-107); Estimated Creatinine Clearance 48 ml/min; Glucose 104 mg/dl (70-99); Potassium 4.1 mmol/L (3.5-5.1); Sodium 140 mmol/L (135-145); eGFR > 60.00
[2024-05-19] MEDS: VANCOCIN 200 IV (09:21)
[2024-05-19] MEDS: MAXIPIME 1000 MG IV (09:21)
[2024-05-19] MEDS: STERILE WATER FOR INJECTION 10 ML IV (09:21)
--- NOTE | 2024-05-19 09:50 | W.PN.HOSP.TC ---
Today's Communication/Plan
-
continue IV Abx pending urine sensitivities
Assessment / Plan
Assessment / Plan
Assessment:
CAUTI POA
Hx of BPH s/p TURP
- chronic Casas exchanged in ER
- Culture growing gram negative bacilli and Enterococcus. Urine culture from Urology office showed pansensitive pseudomonas.
- continue Cefepime
- continue Vancomycin - requires intensive monitoring of levels
- ID following.
- supposedly planned for cystoscopy 05/25, likely will be deferred - TT'd to Dr. Ochoa to update.
Toxic metabolic encephalopathy from UTI
Hx of Dementia - unknown subtype
- resolved, monitor
- continue donepezil
HLD
- statin
Hypothyroidism
- continue replacement
CKD stage 3a
DVT ppx: Lovenox
Code: Full
Anticipated Discharge: 24 - 48 hours
Subjective/Interval History
-
Date of Service: May 19, 2024
no new complaints at present
Objective Data
-
Labs:
Laboratory Results
05/19/24
06:32
WBC 6.4
Hgb 11.4 L
Hct 34.8 L
Plt Count 298
Sodium 140
Potassium 4.1
Chloride 102
Carbon Dioxide 28
BUN 17
Creatinine 1.1
Glucose 104 H
Calcium 9.1
Vital Signs:
Vital Signs
Temp Pulse Resp BP Pulse Ox
97.5 F 65 16 92/63 95
05/19/24 07:54 05/19/24 07:54 05/19/24 07:54 05/19/24 07:54 05/19/24 07:54
I&O
05/18/24 05/19/24 05/20/24
06:59 06:59 06:59
Intake Total 360 / 360 1500 / 1500
Output Total 1750 / 1750 1150 / 1150
Balance -1390 / -1390 350 / 350
Physical Exam
-
General: No Apparent Distress
HEENT: Normocephalic and Atraumatic
Respiratory: Negative Wheezes
Cardiac: Regular Rhythm and S1/S2
GI: Soft and Nontender
Genito-urinary: No Costovertebral Tender
Neuro: AO x 3
Hematologic / Lymphatic: No Lymphadenopathy
Psych: Calm
Data Reviewed
-
Total Time Spent with Patient (in minutes): 51
Labs: Labs Reviewed by me
[2024-05-19] MEDS: MIRALAX 17 GRAMS PO (10:20)
--- NOTE | 2024-05-19 14:50 | W.PN.ID1 ---
Date of Service
Date of Service: May 19, 2024
Today's Communication
Transition to Cipro and amoxicillin, to continue with 7 more days of therapy.
Assessment / Plan
Complicated urinary tract infection
Leukocytosis
Chronic Casas catheter
Urinary retention
Hx hypothyroidism
Hx GI bleed
Hx nephrolithiasis/bladder stone
Recommendations:
Pseudomonas and Enterococcus recovered from the urine. Sensitivities reviewed.
Transition to ciprofloxacin 500 mg p.o. twice daily / amoxicillin 500 mg 3 times daily - to continue with an additional 7 days of therapy.
Chief Complaint
-: UTI
Subjective / Review of Systems
Review of Systems: No Fever and No Chills
Vital Signs / Physical Exam
Vital Signs
Vital Signs
Temp Pulse Resp BP Pulse Ox
97.5 F 65 16 92/63 95
05/19/24 07:54 05/19/24 07:54 05/19/24 07:54 05/19/24 07:54 05/19/24 08:20
Physical Exam
Constitutional: No Acute Distress, Comfortable and Non-toxic
Eyes: Sclera Anicteric
Pulmonary: Non Labored
Gastrointestinal: Non Distended
Genito-Urinary: Casas and Clear Urine; Negative Turbid Urine or Hematuria
Extremities: Negative Edema
Neurological: Awake, Alert and Oriented
Psychological: Calm
Objective Data
Lab Data
Lab Results
05/19/24 06:32
05/19/24 06:32
Estimated Creat Clear 48 ml/min 05/19/24 06:32
Lactic Acid 1.2 mmol/L (0.7-2.0) 05/15/24 19:37
Total Bilirubin 0.5 mg/dl (0.2-1.3) 05/15/24 19:37
AST 20 U/L (17-59) 05/15/24 19:37
ALT 13 U/L (0-50) 05/15/24 19:37
Alkaline Phosphatase 107 U/L (38-126) 05/15/24 19:37
Most recent labs reviewed.
Micro Results:
05/15/24 21:19 Urine Culture - Final
Urine Pseudomonas aeruginosa
Enterococcus faecalis
05/15/24 20:18 Influenza Types A & B (KINJAL) - Final
Nasal Swab Negative for Influenza A & B, NAAT
Negative results must be combined with clinical observations
and patient history.
Nucleic Acid Amplification test (NAAT)performed on the
[employer] platform.
Care Review
Plan reviewed with: Physician (Hospitalist)
--- NOTE | 2024-05-19 15:23 | W.DS.TRANS ---
DC Summary - Director Of Field Service
-
Discharge Instructions:
Discharge Diagnosis/Procedures Pseudomonas and Enterococcus CAUTI
Diet Regular
Activity As tolerated
Bathing Restrictions None
Other Services VN
Instructions:
Stand-Alone Forms:
Changes to Home Medications: No
Discharge Medications:
DC Medications w/original date entered in [facility]
atorvastatin 10 mg tablet (Lipitor) 10 mg PO HS High cholesterol 08/31/20
ciprofloxacin HCl 500 mg tablet (Cipro) 500 mg PO BID 05/15/24
cyanocobalamin (vitamin B-12) 1,000 mcg tablet 1,000 mcg PO DAILY 05/15/24
donepezil 10 mg tablet 10 mg PO HS 05/15/24
lansoprazole 30 mg capsule,delayed release (Prevacid) 30 mg PO DAILY 05/15/24
levothyroxine 125 mcg tablet 125 mcg PO HS 05/15/24
sennosides 8.6 mg tablet (senna) 8.6 mg PO Q48H 05/15/24
therapeutic multivitamin 1 tab PO DAILY 05/15/24
amoxicillin 500 mg capsule 500 mg PO Q8 #22 caps 05/19/24
Home Medication Changes
Pending Results: No
Total time spent discharging patient (in min): 41
--- NOTE | 2024-05-19 15:30 | CM ---
Chart reviewed and plan is to home with [facility] visiting nurses.
[facility]
[phone]
[2024-05-19 15:38] VITALS: BP 101/56
[2024-05-19] MEDS: AMOXIL 500 MG PO (15:43)
== END 2024-05-19 16:28 | disposition home health service (06) | DRG 698 ==
LOC: 4 WEST ACU 22:38
PROVIDERS: Internal Medicine; Physician Assistant; Physician Assistant Medical; ADMITTING PHYSICIAN Hospitalist; ATTENDING PHYSICIAN Internal Medicine; EMERGENCY PHYSICIAN Student in an Organized Health Care Education/Training Program; FAMILY PHYSICIAN Family Medicine; OTHER PHYSICIAN Internal Medicine Infectious Disease
DX: T83.518A Infection and inflammatory reaction due to other urinary catheter, initial encounter (principal); G92.8 Other toxic encephalopathy; N39.0 Urinary tract infection, site not specified; Y84.6 Urinary catheterization as the cause of abnormal reaction of the patient, or of later complication, without mention of misadventure at the time of the procedure; N40.1 Benign prostatic hyperplasia with lower urinary tract symptoms; F03.90 Unspecified dementia, unspecified severity, without behavioral disturbance, psychotic disturbance, mood disturbance, and anxiety; E78.00 Pure hypercholesterolemia, unspecified; E05.90 Thyrotoxicosis, unspecified without thyrotoxic crisis or storm; N18.31 Chronic kidney disease, stage 3a; E03.9 Hypothyroidism, unspecified; K21.9 Gastro-esophageal reflux disease without esophagitis; Z87.440 Personal history of urinary (tract) infections; Z87.442 Personal history of urinary calculi; Z85.820 Personal history of malignant melanoma of skin; Z11.52 Encounter for screening for COVID-19; B96.5 Pseudomonas (aeruginosa) (mallei) (pseudomallei) as the cause of diseases classified elsewhere; B95.2 Enterococcus as the cause of diseases classified elsewhere
CPT/HCPCS: 51702; 80048; 80053; 80202; 81003; 81015; 83605; 85025; 85027; 87077; 87086; 87186; 87502; 87811; 96361; 96374; 97116; 97162; 97166; 97530; 99284

== ENCOUNTER 2024-05-23 02:38 | Emergency (ER) | payer OTHER, SELFPAY ==
[2024-05-23 02:42] VITALS: BP 124/99
--- NOTE | 2024-05-23 03:06 | ED.GENMED ---
History of Present Illness
General
Chief Complaint: Catheter/Tube Problem
Source: patient, spouse and previous hospital records (Recent hospitalization May 15 to May 19 for treatment of catheter associated UTI.)
Exam Limitations: none
Time Seen by Provider: 05/23/24 02:50
Nursing documentation reviewed up to this point in time: agreed with
History of Present Illness
History of Present Illness:
This is an 83-year-old gentleman who resides at home with his . He has history of BPH with urinary retention requiring Casas catheter placement over 1 month ago. He has had repeated failed voiding trials and thus repeated reinsertion of Casas
catheters over the past month and a half. Recently hospitalized May 15 to May 19 for treatment of catheter associated UTI he presented with fever and confusion.
Casas catheter changed in the ED May 15 and he was treated with IV antibiotics, transition to Cipro and amoxicillin which he continues to take.
He follows with Dr. Ochoa.
Tonight noted some blood in his urine, small blood clots which is a new finding and he presents with lack of urine output from Casas catheter since 7 PM accompanied with progressive lower abdominal discomfort.
He has not had a fever nor chills. He has been moving his bowels normally. Appetite has been good.
He denies back pain or flank pain.
Past History
Past History
ED Past Medical History: Cancer (Basal cell CA), Hypercholesterolemia, Hypothyroidism, Other (GI bleeding. Renal calculus, BPH with urinary obstruction, catheter associated UTI May 2024) and Other (Senile dementia)
ED Past Surgical History: Urological (Stone removed from bladder) and Other (Hernia); Negative Cardiac
Social History
Tobacco: Non-smoker
Alcohol: None
Drug: None
Personal:
Living: with family
Employment: Retired
Family History
Family History: Hypertension
Phy Exam
Physical Exam
Physical Exam:
GENERAL: 83-year-old gentleman appears his stated age, awake and alert, pleasant, appears in no acute distress. is accompanying.
EYE: anicteric
NECK: Supple, nontender, no meningismus, no significant adenopathy.
ENT: oral mucosa is moist. No rhinorrhea.
CARDIAC: Regular rate and rhythm. no murmur.
LUNGS: Clear breath sounds bilaterally, no acute respiratory distress, no wheezes/rales/rhonchi
ABDOMEN: Soft, nondistended, mild tenderness suprapubic region over somewhat palpably distended bladder. Casas catheter in place with no urine within tubing nor bag, no r/g, no cvat. normoactive BS.
NEUROLOGICAL: Alert and oriented x3, no focal neuro deficits.
SKIN: Warm and dry, normal color, skin intact. No rash.
MUSCULOSKELETAL: No C/C/E. peripheral pulses are full and equal b/l. No palpable tenderness.
PSYCH: Normal and appropriate interaction.
Course
Orders/Labs/Results
Orders:
Orders
05/23/24 02:55
Lidocaine 2% [Lidocaine Uro-Jet 2%] 1 syringe .ROUTE .[employer] ONE
05/23/24 02:57
Casas Placement- Treatment ONCE
Reason for insertion: Outlet obstruction
05/23/24 03:08
Lidocaine 2% [Lidocaine Uro-Jet 2%] 1 syringe TOPICAL NOW STA
Vital Signs
Initial and Last Documented VS:
Initial Vital Signs
Temp Pulse BP Pulse Ox
97.9 F 94 124/99 98
05/23/24 02:42 05/23/24 02:42 05/23/24 02:42 05/23/24 02:42
Last Documented Vital Signs
Temp Pulse Resp BP Pulse Ox
98.6 F 65 16 112/76 96
05/23/24 04:45 05/23/24 04:45 05/23/24 04:45 05/23/24 04:45 05/23/24 04:45
MDM/Problems Addressed
Differential Diagnosis Includes:
Patient presents with blocked Casas catheter, suprapubic discomfort.
Bladder scan reveals greater than 400 cc in the bladder.
Recent hospitalization for catheter associated UTI. Currently taking Cipro as well as amoxicillin. He has not had a fever, no flank pain, nothing to suggest recurrent/worsening UTI at this point.
He does have history of kidney stones and thus with noting hematuria, concern for passing a stone however again he has not had flank pain, no associated nausea, vomiting. Hematuria initially noted and he was asymptomatic.
Will plan to change Casas catheter and assess urine output as well as assess for relief of suprapubic discomfort.
Chronic conditions affecting care: Kidney disease and Other (BPH with urinary retention; chronic indwelling Casas catheter; recent hospitalization for UTI)
*Pulse Oximetry
Patient hypoxic: no
*Critical Care Note
Total Time (30-74mins, 75-104mins- exclusive of procedures): Not Applicable
Update Note
Update Note:
03:55
Casas catheter changed by nursing staff without difficulty.
Noted to have few small blood clots initially but has since cleared. Initial output 475 clear yellow urine.
Patient has complete relief of suprapubic discomfort.
Will discharge to home with Casas catheter in place and with plan to follow-up with Dr. Ochoa.
Finish current antibiotics.
ED Attending Note
-
Portions of this chart may have been created with voice recognition software.� Occasional wrong word or��sound alike� substitutions may have occurred due to the inherent limitations of voice recognition software.
Discharge Plan
Departure
Patient Disposition: Home (Routine Discharge)
Date of Disposition: 05/23/24
Time of Disposition: 03:55
Patient with high blood pressure during this ER visit?: No
Condition: Good
Discharge Problem:
Complication, blocked Casas catheter
Instructions: How to Care for Your Casas Catheter, Male
Prescriptions:
No Action
atorvastatin [Lipitor] 10 MG tablet
10 mg PO HS
sennosides [senna] 8.6 mg Tablet
8.6 mg PO Q48H
donepezil 10 mg Tablet
10 mg PO HS
cyanocobalamin (vitamin B-12) 1,000 mcg Tablet
1,000 mcg PO DAILY
therapeutic multivitamin Tablet
1 tab PO DAILY
ciprofloxacin HCl [Cipro] 500 mg Tablet
500 mg PO BID
levothyroxine 125 mcg Tablet
125 mcg PO HS
lansoprazole [Prevacid] 30 mg Capsule,Delayed Release(Dr/Ec)
30 mg PO DAILY
amoxicillin 500 mg Capsule
500 mg PO Q8 Qty: 22 0RF
Referrals:
Esequiel Singh MD [Family Provider] -
Sage Ochoa MD [Active] - Call in 1-3 days for appt
Interventions
Interventions:
*Risk Screen - Suicide Last Done: 05/23/24 03:10
*General Assessment Last Done: 05/23/24 02:42
*Neglect/Abuse Screening Last Done: 05/23/24 04:45
ED- Fall Risk Assessment Last Done: 05/23/24 03:10
*ED COVID-19 Vaccine History Last Done: 05/23/24 02:42
*Nursing Disposition Last Done: 05/23/24 04:45
GG-Rzmfow-Akccateypv Assessment Last Done: 05/23/24 03:10
ED-Male Genitourinary Assessment Last Done: 05/23/24 03:10
Discharge Date and Time
Discharge Date/Time: 05/23/24 04:45
Print Language: TAJIK
[2024-05-23] MEDS: LIDOCAINE URO-JET 2% 1 SYRINGE TOPICAL (03:08)
[2024-05-23 04:45] VITALS: BP 112/76
== END 2024-05-23 04:45 | disposition home or self-care (01) ==
LOC: EMR 02:38
PROVIDERS: EMERGENCY PHYSICIAN Emergency Medicine; FAMILY PHYSICIAN Family Medicine
DX: T83.091A Other mechanical complication of indwelling urethral catheter, initial encounter (principal); R10.30 Lower abdominal pain, unspecified; Y84.6 Urinary catheterization as the cause of abnormal reaction of the patient, or of later complication, without mention of misadventure at the time of the procedure; N40.1 Benign prostatic hyperplasia with lower urinary tract symptoms; E78.00 Pure hypercholesterolemia, unspecified; E03.9 Hypothyroidism, unspecified; F03.90 Unspecified dementia, unspecified severity, without behavioral disturbance, psychotic disturbance, mood disturbance, and anxiety; M48.00 Spinal stenosis, site unspecified; Z85.828 Personal history of other malignant neoplasm of skin; Z87.440 Personal history of urinary (tract) infections; Z87.442 Personal history of urinary calculi; Z87.891 Personal history of nicotine dependence; Z88.1 Allergy status to other antibiotic agents; Z88.2 Allergy status to sulfonamides
CPT/HCPCS: 99284; 51798; 51702

== ENCOUNTER 2024-05-24 23:23 | Emergency (ER) | payer OTHER, SELFPAY ==
[2024-05-24 23:23] VITALS: BP 121/81
[2024-05-25 00:08] LABS: % Eosinophils 4.7 % (0-6); % Immature Granulocytes 0.5 % (0-0.5); % Lymphocytes 9.1 % (20.5-51.1); % Monocytes 14.3 % (1.7-9.3); % Neutrophils 70.4 % (42.2-75.2); Absolute Basophils 0.1 10^3/uL (0-0.2); Absolute Eosinophils 0.3 10^3/uL (0-0.7); Absolute Lymphocytes 0.6 10^3/uL (1.2-3.4); Absolute Monocytes 0.9 10^3/uL (0.1-0.6); Absolute Neutrophils 4.3 10^3/uL (1.4-6.5); Hematocrit 33.3 % (39.0-52.0); Mean Corpuscular Hgb 32.1 pg (27.0-31.0); Mean Corpuscular Volume 97.1 fL (80.0-94.0); Mean Platelet Volume 9.1 fL (7.4-10.4); Nucleated Red Blood Cells % 0 % (-); Platelet Count 276 10^3/uL (130-400); Red Blood Cell Count 3.43 10^6/uL (4.70-6.10); Red Cell Dist. Width 12.7 % (11.5-14.5); White Blood Cell Count 6.1 10^3/uL (4.8-10.8)
[2024-05-25 00:22] LABS: ALT (SGPT) 25 U/L (0-50); AST (SGOT) 30 U/L (17-59); Albumin 3.9 g/dl (3.5-5.0); Alkaline Phosphatase 103 U/L (38-126); Blood Urea Nitrogen 23 mg/dl (9-20); Calcium 9.3 mg/dl (8.4-10.2); Carbon Dioxide 26 mmol/L (22-30); Chloride 101 mmol/L (98-107); Glucose 120 mg/dl (70-99); Potassium 4.2 mmol/L (3.5-5.1); Sodium 135 mmol/L (135-145); Total Bilirubin 0.3 mg/dl (0.2-1.3); Total Protein 6.9 g/dl (6.3-8.2); eGFR 54.17
[2024-05-25 01:15] VITALS: BMI 25.5
--- NOTE | 2024-05-25 01:16 | EDRN ---
Pt was released from with uti on Saturday. Pt has been taking cipro and amoxicillin. reports pt is confused and has been running a fever. Pt had temp of 100.6 at home. Pt not given any medication for fever. Pt has a cough and has been
taking mucinex-D. says they went to dinner and she noticed pt was shivering. Pt came home, fell asleep and when he got up to go to the kitchen he could barely walk which is when took pt's temp. Pt says he feels 'ok' now. No pain.
[2024-05-25 01:24] VITALS: BP 119/68
--- NOTE | 2024-05-25 01:45 | ED.GENMED ---
History of Present Illness
General
Chief Complaint: Fever
Source: patient and spouse
Exam Limitations: dementia
Time Seen by Provider: 05/25/24 01:21
History of Present Illness
History of Present Illness:
This is a 83 year old male that is brought in by his with c/o fever. states that he was just discharged on Saturday. States that he has a UTI with two different bacteria. States that he is on Cipro and Amoxicillin. Tonight he started with
a fever of 100.6. States that he was shivering at dinner but she didn't realize it. Denies any chest pain, SOB, abd pain, nausea, vomiting, diarrhea, headache, dizziness. Patient has indwelling villareal.
Past History
Past History
ED Past Medical History: Cancer (Basal cell CA), Hypercholesterolemia, Hypothyroidism, Other (GI bleeding. Renal calculus, BPH with urinary obstruction, catheter associated UTI May 2024, Sepsis) and Other (Senile dementia, Spinal stenosis, )
ED Past Surgical History: Urological (Stone removed from bladder) and Other (Hernia); Negative Cardiac
Social History
Tobacco: Non-smoker
Alcohol: None
Drug: None
Personal:
Living: with family
Employment: Retired
Family History
Family History: Hypertension
Review of Systems
Review of Systems
Other source history: family
All Other Systems: ROS reviewed and negative except as documented in HPI and ROS
Constitutional: Reports fever and chills
EENT: Reports no symptoms
Respiratory: Reports cough; Denies trouble breathing
Cardiac: Reports no symptoms; Denies chest pain
ABD/GI: Reports no symptoms; Denies abdominal pain, nausea, vomiting or diarrhea
: Reports no symptoms
Musculoskeletal: Reports no symptoms
Skin: Reports no symptoms
Neurological: Reports no symptoms; Denies dizzy or headache
Psychiatric: Reports no symptoms
Phy Exam
General Physical Exam
General Presentation: no apparent distress
General age: appears stated age
General Skin: warm and dry
General Habitus: elderly
General Mental: usual mental status
General Hydration: appears well hydrated
ENT Exam
ENT Exam: TM's normal, pharynx normal and neck supple
Eye Exam
Eye Exam: EOMI
Cardiovascular Exam
Cardiovascular Exam: regular rate/rhythm, no edema and normal peripheral pulses
Pulmonary Exam
Pulmonary Exam: lungs clear, no respiratory distress, no rales, chest non tender, no crackles, no rhonchi, no wheezing and other (Occasional dry cough noted)
Gastrointestinal Exam
Gastrointestinal Exam: normal bowel sounds, non tender, soft, no organomegaly, no pulsatile mass and non distended
Musculoskeletal Exam
Musculoskeletal Exam: full ROM and no edema
Skin Exam
Skin Exam: normal color, warm/dry, no rash and no petechia
Psychiatric Exam
Psychiatric Exam: normal mood/affect
Sepsis
Sepsis Screening
Sepsis Assessment: Sepsis Ruled Out
Sepsis Screen
Sepsis Screen: Sepsis Ruled Out
Date: 05/25/24
Time: 02:35
Course
Orders/Labs/Results
Orders:
Orders
05/24/24 23:32
Electrocardiogram (*1) Urgent
Reason for Study: Other
Other Reason for Exam: Possible Sepsis
Cardiac Monitoring- Treatment ONCE
IV Insert/Care/Rem.- Treatment PRN
Urinalysis Reflex To Culture Urgent
Date Specimen was Collected: 05/24/24
Time Specimen was Collected: 23:33
O2 Therapy [RESP] Urgent
Titrate/Wean O2 to maintain O2 sat greater than (%): 93
Special Instructions: TO MAINTAIN CONTINUOUS O2 SATS > OR = 93%
Pulse Ox/cont/shift [RESP] Urgent
Quantity: 1
Special Instructions: CONTINUOUS
05/24/24 23:59
Complete Blood Count/With Diff Urgent
Comprehensive Metabolic Panel Urgent
Lactic Acid Q4H
Comment: ON ICE, CANCEL 2ND ORDER IF FIRST LACTIC ACID LEVEL <2
05/25/24 01:19
Urine Microscopic Reflex Cult Urgent
Urine Culture Urgent
KEVIN Source: U
Specimen Description:
Date Specimen was Collected: 05/24/24
Time Specimen was Collected: 23:33
05/25/24 01:36
COVID-19 Antigen Urgent
Source: Nasal Swab
Influenza A+B Rapid Molecular Urgent
KEVIN Source: Nasal Swab
Specimen Description:
05/25/24 01:43
CR Chest - 2 Views Urgent
Comment:
Reason For Exam: Cough, Fever
05/25/24 01:44
Blood Culture Urgent
KEVIN Source: Blood/Venous
Specimen Description:
Abnormal Lab Results
05/24/24 05/25/24 05/25/24
23:59 01:19 01:36
RBC 3.43 L 10^6/uL
(4.70-6.10)
Hgb 11.0 L g/dL
(13.0-18.0)
Hct 33.3 L %
(39.0-52.0)
MCV 97.1 H fL
(80.0-94.0)
MCH 32.1 H pg
(27.0-31.0)
Absolute Lymphs (auto) 0.6 L 10^3/uL
(1.2-3.4)
Absolute Monos (auto) 0.9 H 10^3/uL
(0.1-0.6)
Lymphocytes % 9.1 L %
(20.5-51.1)
Monocytes % 14.3 H %
(1.7-9.3)
BUN 23 H mg/dl
(9-20)
Glucose 120 H mg/dl
(70-99)
Ur Occult Blood Reflex 3+ A
(Negative)
Leukocyte Esterase Rfl 2+ A
(Negative)
Urine WBC (Reflex) >100 A /HPF
(0-5)
Urine Bacteria (Reflex) Many A
(Negative)
Urine Yeast Many A
(Negative)
Urine Albumin (Reflex) 1+ A
(Neg - Trace)
SARS-CoV-2 Antigen Positive A
(Negative)
05/24/24 23:59
05/24/24 23:59
H/H slightly low. Dehydration. Hyperglycemia. Lactic acid normal at 1.0, Positive for COVID, Influenza negative. Urine is contaminated Culture is pending (patient is on Cipro and Amoxicillin for a UTI)
Vital Signs
Initial and Last Documented VS:
Initial Vital Signs
Temp Pulse Resp BP Pulse Ox
99.4 F 88 18 121/81 97
05/24/24 23:23 05/24/24 23:23 05/24/24 23:23 05/24/24 23:23 05/24/24 23:23
Last Documented Vital Signs
Temp Pulse Resp BP Pulse Ox
100.1 F 68 18 107/56 97
05/25/24 01:28 05/25/24 02:00 05/25/24 02:00 05/25/24 02:00 05/24/24 23:23
MDM/Problems Addressed
Differential Diagnosis Includes:
COVID, UTI,
MDM/Problems Addressed:
This is a 83 year old male that is brought in by with with c/o fever. States that he was just discharged on Saturday. Patient is on Cipro and Amoxicillin and tonight he started with a fever of 100.6. States that he did have chills at dinner.
Will check labs. COVID, Influenza, Chest x-ray urine.
Back into see patient and . Explained that he has COVID. Chest x-ray is negative for any acute process and he is negative for Influenza. Encouraged to increase his water intake to 8-8oz glasses daily. Tylenol or Iburofen for fever. Urine is
contaminated but culture is pending. Will discharge patient home.
Chronic conditions affecting care:
Indwelling catheter. UTI
Acute Exacerbation and/or Progression of Chronic Illness:
NA
*Pulse Oximetry
Patient hypoxic: no
*EKG
Interpreted by ED Provider?: NA
Rate: EKG- N/A
*Nailhead Operator Interpretation
Rate: normal
Heart Rate: 77
Rhythm: sinus
*Critical Care Note
Total Time (30-74mins, 75-104mins- exclusive of procedures): Not Applicable
ED Attending Note
-
Portions of this chart may have been created with voice recognition software.� Occasional wrong word or��sound alike� substitutions may have occurred due to the inherent limitations of voice recognition software.
Discharge Plan
Departure
Patient Disposition: Home (Routine Discharge)
Date of Disposition: 05/25/24
Time of Disposition: 02:30
Patient with high blood pressure during this ER visit?: No
Condition: Good
Covid-19: Confirmed COVID-19
Discharge Problem:
COVID
Instructions: Fever, Adult (DC), COVID-19 - ED discharge instructions
Prescriptions:
No Action
atorvastatin [Lipitor] 10 MG tablet
10 mg PO HS
sennosides [senna] 8.6 mg Tablet
8.6 mg PO Q48H
donepezil 10 mg Tablet
10 mg PO HS
cyanocobalamin (vitamin B-12) 1,000 mcg Tablet
1,000 mcg PO DAILY
therapeutic multivitamin Tablet
1 tab PO DAILY
ciprofloxacin HCl [Cipro] 500 mg Tablet
500 mg PO BID
levothyroxine 125 mcg Tablet
125 mcg PO HS
lansoprazole [Prevacid] 30 mg Capsule,Delayed Release(Dr/Ec)
30 mg PO DAILY
amoxicillin 500 mg Capsule
500 mg PO Q8 Qty: 22 0RF
Referrals:
Esequiel Singh MD [Family Provider] - Call in 1-3 days for appt
Activity Restrictions/Additional Instructions:
As discussed, your blood work shows you are a little anemia and you are dehydrated. Otherwise your White blood cell count is normal. Please increase your water intake to 8-8oz glasses daily. You are positive for COVID. Your chest x-ray is negative
for any acute disease. Follow up with the family doctor in the next 2-3 days or as needed. You may use Tylenol 1000mg every 6 hours for fever. IF YOU HAVE ANY OTHER CONCERNS PLEASE RETURN TO THE EMERGENCY ROOM .
Interventions
Interventions:
*Risk Screen - Suicide Last Done: 05/24/24 23:29
*General Assessment Last Done: 05/24/24 23:29
*Neglect/Abuse Screening Last Done: 05/24/24 23:29
*ED COVID-19 Vaccine History Last Done: 05/24/24 23:29
ED- Neurological Assessment Last Done: 05/25/24 01:25
ED-Skin Assessment Last Done: 05/25/24 01:25
Discharge Date and Time
Print Language: AZERI
[2024-05-25 01:51] LABS: COVID-19 Antigen Positive (Negative)
[2024-05-25 01:56] LABS: Urine Albumin 1+ (Neg - Trace); Urine Bilirubin Negative (Negative); Urine Character Slightly Cloudy (Clear); Urine Color Yellow; Urine Glucose Negative (Negative); Urine Ketone Negative (Negative); Urine Leukocyte 2+ (Negative); Urine Nitrite Negative (Negative); Urine Occult Blood 3+ (Negative); Urine Specific Gravity 1.025 (<1.030); Urine Urobilinogen Negative (Neg - 1+)
[2024-05-25 02:00] VITALS: BP 107/56
[2024-05-25 02:06] LABS: Urine Amorphous Seen; Urine Bacteria Many (Negative); Urine Mucus Many; Urine Squamous Cell >30 /LPF (Few)
[2024-05-25 02:07] LABS: Urine White Cell >100 /HPF (0-5); Urine Yeast Many (Negative)
[2024-05-25 02:08] LABS: Urine Calcium Oxalate Crystals Seen
== END 2024-05-25 02:48 | disposition home or self-care (01) ==
LOC: EMR 23:23
PROVIDERS: Clinical Nurse Specialist Family Health; Emergency Medicine; EMERGENCY PHYSICIAN Emergency Medicine; FAMILY PHYSICIAN Family Medicine
DX: U07.1 COVID-19 (principal); E86.0 Dehydration; E78.00 Pure hypercholesterolemia, unspecified; E03.9 Hypothyroidism, unspecified; N40.1 Benign prostatic hyperplasia with lower urinary tract symptoms; N13.8 Other obstructive and reflux uropathy; M48.00 Spinal stenosis, site unspecified; F03.90 Unspecified dementia, unspecified severity, without behavioral disturbance, psychotic disturbance, mood disturbance, and anxiety; Z82.49 Family history of ischemic heart disease and other diseases of the circulatory system; Z87.440 Personal history of urinary (tract) infections; Z87.442 Personal history of urinary calculi
CPT/HCPCS: 99283; 71046; 80053; 81003; 81015; 83605; 85025; 87086; 87502; 87811

== ENCOUNTER 2024-08-31 19:09 | Emergency (ER) | payer OTHER, SELFPAY ==
[2024-08-31 19:13] VITALS: BP 105/60
[2024-08-31 19:35] LABS: % Basophils 0.4 % (0-2); % Eosinophils 0.6 % (0-6); % Immature Granulocytes 0.3 % (0-0.5); % Lymphocytes 4.8 % (20.5-51.1); % Monocytes 3.5 % (1.7-9.3); % Neutrophils 90.4 % (42.2-75.2); Absolute Eosinophils 0.1 10^3/uL (0-0.7); Absolute Lymphocytes 0.5 10^3/uL (1.2-3.4); Absolute Monocytes 0.4 10^3/uL (0.1-0.6); Absolute Neutrophils 9.9 10^3/uL (1.4-6.5); Hemoglobin 13.1 g/dL (13.0-18.0); Mean Corp Hgb Conc. 33.6 g/dL (33.0-37.0); Mean Corpuscular Hgb 31.8 pg (27.0-31.0); Mean Corpuscular Volume 94.7 fL (80.0-94.0); Mean Platelet Volume 9.5 fL (7.4-10.4); Nucleated Red Blood Cells % 0 % (-); Platelet Count 235 10^3/uL (130-400); Red Blood Cell Count 4.12 10^6/uL (4.70-6.10); Red Cell Dist. Width 13.5 % (11.5-14.5); White Blood Cell Count 10.9 10^3/uL (4.8-10.8)
[2024-08-31 19:49] LABS: ALT (SGPT) 14 U/L (0-50); AST (SGOT) 23 U/L (17-59); Albumin 4.2 g/dl (3.5-5.0); Alkaline Phosphatase 109 U/L (38-126); Blood Urea Nitrogen 26 mg/dl (9-20); Calcium 9.4 mg/dl (8.4-10.2); Carbon Dioxide 27 mmol/L (22-30); Chloride 102 mmol/L (98-107); Glucose 154 mg/dl (70-99); Potassium 4.3 mmol/L (3.5-5.1); Sodium 138 mmol/L (135-145); Total Bilirubin 0.7 mg/dl (0.2-1.3); Total Protein 7.1 g/dl (6.3-8.2); eGFR 49.25
[2024-08-31 19:50] LABS: Lactic Acid 1.3 mmol/L (0.7-2.0)
[2024-09-01 00:03] VITALS: BP 143/64
[2024-09-01 00:04] VITALS: BP 143/64; BMI 27.0
[2024-09-01 00:25] LABS: Urine Albumin 3+ (Neg - Trace); Urine Bilirubin Negative (Negative); Urine Character Cloudy (Clear); Urine Color Amber; Urine Glucose Negative (Negative); Urine Ketone Negative (Negative); Urine Leukocyte 3+ (Negative); Urine Nitrite Positive (Negative); Urine Occult Blood 4+ (Negative); Urine Specific Gravity 1.015 (<1.030); Urine Urobilinogen 1+ (Neg - 1+)
[2024-09-01 01:00] VITALS: BP 124/71
[2024-09-01 01:31] LABS: COVID-19 Antigen Negative (Negative)
[2024-09-01 01:40] LABS: Urine Bacteria Many (Negative); Urine Red Blood Cell >100 /HPF (0-2); Urine White Cell >100 /HPF (0-5)
--- NOTE | 2024-09-01 01:48 | EDRN ---
Raven CARPENTRY INSTRUCTOR back in to go over results and plan
--- NOTE | 2024-09-01 02:15 | ED.GENMED ---
History of Present Illness
General
Chief Complaint: Fever
Source: patient
Exam Limitations: none
Time Seen by Provider: 09/01/24 00:07
Nursing documentation reviewed up to this point in time: agreed with
History of Present Illness
History of Present Illness:
Patient to ED for suspected UTI. states patient had a temp of 100 at home and she feels that he is acting like hea has in the past when he has had a UTI. No chill, n/v/d. No abdominal pain. He has a villareal catheter. Last seen by
flashner on . Brought to ED by spouse for eval.
Past History
Past History
ED Past Medical History: Cancer (Basal cell CA), Hypercholesterolemia, Hypothyroidism, Other (GI bleeding. Renal calculus, BPH with urinary obstruction, catheter associated UTI May 2024, Sepsis) and Other (Senile dementia, Spinal stenosis, )
ED Past Surgical History: Urological (Stone removed from bladder) and Other (Hernia); Negative Cardiac
Social History
Tobacco: Non-smoker
Alcohol: None
Drug: None
Personal:
Living: with family
Employment: Retired
Family History
Family History: Hypertension
Review of Systems
Review of Systems
Allergies reviewed?: Yes
All Other Systems: ROS reviewed and negative except as documented in HPI and ROS
Constitutional: Reports no symptoms
EENT: Reports no symptoms
Respiratory: Reports no symptoms
Cardiac: Reports no symptoms
ABD/GI: Reports no symptoms
: Reports other (villareal catheter)
Musculoskeletal: Reports no symptoms
Skin: Reports no symptoms
Neurological: Reports no symptoms
Psychiatric: Reports no symptoms
Phy Exam
General Physical Exam
General Presentation: well appearing and no apparent distress
General age: appears stated age
General Skin: warm and dry
General Habitus: normal
General Mental: alert
Cardiovascular Exam
Cardiovascular Exam: regular rate/rhythm and no edema
Pulmonary Exam
Pulmonary Exam: lungs clear and no respiratory distress
Gastrointestinal Exam
Gastrointestinal Exam: normal bowel sounds, non tender and soft
Musculoskeletal Exam
Musculoskeletal Exam: full ROM and neuro vasc intact
Skin Exam
Skin Exam: normal color, warm/dry and no rash
Psychiatric Exam
Psychiatric Exam: normal mood/affect
Course
Orders/Labs/Results
Orders:
Orders
08/31/24 19:24
Complete Blood Count/With Diff Urgent
Comprehensive Metabolic Panel Urgent
Lactic Acid Urgent
09/01/24 00:11
Urinalysis Reflex To Culture Urgent
Date Specimen was Collected: 09/01/24
Time Specimen was Collected: 00:07
Urine Microscopic Reflex Cult Urgent
Urine Culture Urgent
KEVIN Source: U
Specimen Description:
Date Specimen was Collected: 09/01/24
Time Specimen was Collected: 00:07
09/01/24 00:41
COVID-19 Antigen Urgent
Source: Nasal Swab
Influenza A+B Rapid Molecular Urgent
KEVIN Source: Nasal Swab
Specimen Description:
09/01/24 01:58
Electrocardiogram (*1) Urgent
Reason for Study: QTc Monitoring
EKG- Treatment ONCE
09/01/24 02:11
Ciprofloxacin HCl [Cipro] 500 mg PO NOW STA
Abnormal Lab Results
08/31/24 09/01/24
19:24 00:11
WBC 10.9 H 10^3/uL
(4.8-10.8)
RBC 4.12 L 10^6/uL
(4.70-6.10)
MCV 94.7 H fL
(80.0-94.0)
MCH 31.8 H pg
(27.0-31.0)
Absolute Neuts (auto) 9.9 H 10^3/uL
(1.4-6.5)
Absolute Lymphs (auto) 0.5 L 10^3/uL
(1.2-3.4)
Neutrophils % 90.4 H %
(42.2-75.2)
Lymphocytes % 4.8 L %
(20.5-51.1)
BUN 26 H mg/dl
(9-20)
Creatinine 1.4 H mg/dL
(0.7-1.3)
Glucose 154 H mg/dl
(70-99)
Ur Occult Blood Reflex 4+ A
(Negative)
Urine Nitrite (Reflex) Positive A
(Negative)
Leukocyte Esterase Rfl 3+ A
(Negative)
Urine RBC >100 A /HPF
(0-2)
Urine WBC (Reflex) >100 A /HPF
(0-5)
Urine Bacteria (Reflex) Many A
(Negative)
Urine Albumin (Reflex) 3+ A
(Neg - Trace)
08/31/24 19:24
08/31/24 19:24
Vital Signs
Initial and Last Documented VS:
Initial Vital Signs
Temp Pulse Resp BP Pulse Ox
98.9 F 74 20 105/60 98
08/31/24 19:13 08/31/24 19:13 08/31/24 19:13 08/31/24 19:13 08/31/24 19:13
Last Documented Vital Signs
Temp Pulse Resp BP Pulse Ox
98.0 F 60 21 124/71 98
09/01/24 00:04 09/01/24 01:45 09/01/24 01:45 09/01/24 01:00 09/01/24 01:45
*Critical Care Note
Total Time (30-74mins, 75-104mins- exclusive of procedures): Not Applicable
ED Attending Note
-
Portions of this chart may have been created with voice recognition software.� Occasional wrong word or��sound alike� substitutions may have occurred due to the inherent limitations of voice recognition software.
Discharge Plan
Departure
Patient Disposition: Home (Routine Discharge)
Date of Disposition: 09/01/24
Time of Disposition: 02:11
Patient with high blood pressure during this ER visit?: No
Condition: Good
Covid-19: Not Applicable
Discharge Problem:
Urinary tract infection
Instructions: Urinary tract infections in adults
Prescriptions:
New
ciprofloxacin HCl [Cipro] 500 mg tablet
500 mg PO BID Qty: 10 0RF
No Action
atorvastatin [Lipitor] 10 MG tablet
10 mg PO HS
sennosides [senna] 8.6 mg Tablet
8.6 mg PO Q48H
donepezil 10 mg Tablet
10 mg PO HS
cyanocobalamin (vitamin B-12) 1,000 mcg Tablet
1,000 mcg PO DAILY
therapeutic multivitamin Tablet
1 tab PO DAILY
ciprofloxacin HCl [Cipro] 500 mg Tablet
500 mg PO BID
levothyroxine 125 mcg Tablet
125 mcg PO HS
lansoprazole [Prevacid] 30 mg Capsule,Delayed Release(Dr/Ec)
30 mg PO DAILY
amoxicillin 500 mg Capsule
500 mg PO Q8 Qty: 22 0RF
Referrals:
Esequiel Singh MD [Family Provider] -
Sage Ochoa MD [Active] - Call in 1-3 days for appt
Activity Restrictions/Additional Instructions:
Return to the emergency department immediately for any changes in/worsening of your symptom
Interventions
Interventions:
*Risk Screen - Suicide Last Done: 09/01/24 00:04
*General Assessment Last Done: 08/31/24 19:13
*Neglect/Abuse Screening Last Done: 09/01/24 00:04
*ED- Fall Risk Assessment Last Done: 09/01/24 00:04
*ED COVID-19 Vaccine History Last Done: 09/01/24 00:04
*Nursing Disposition Last Done: 09/01/24 02:59
ED- Neurological Assessment Last Done: 09/01/24 01:31
ED-Skin Assessment Last Done: 09/01/24 01:31
Discharge Date and Time
Discharge Date/Time: 09/01/24 03:00
Print Language: TURKMEN
[2024-09-01] MEDS: CIPRO 500 MG PO (02:27)
== END 2024-09-01 03:00 | disposition home or self-care (01) ==
LOC: EMR 19:09
PROVIDERS: Emergency Medicine; Nurse Practitioner; EMERGENCY PHYSICIAN Emergency Medicine; FAMILY PHYSICIAN Family Medicine
DX: N39.0 Urinary tract infection, site not specified (principal); Z11.52 Encounter for screening for COVID-19; E03.9 Hypothyroidism, unspecified; E78.00 Pure hypercholesterolemia, unspecified; N40.1 Benign prostatic hyperplasia with lower urinary tract symptoms; N13.8 Other obstructive and reflux uropathy; F03.90 Unspecified dementia, unspecified severity, without behavioral disturbance, psychotic disturbance, mood disturbance, and anxiety; M48.00 Spinal stenosis, site unspecified; Z91.81 History of falling; Z85.828 Personal history of other malignant neoplasm of skin; Z87.440 Personal history of urinary (tract) infections; Z87.442 Personal history of urinary calculi; Z87.891 Personal history of nicotine dependence; Z88.1 Allergy status to other antibiotic agents; Z88.2 Allergy status to sulfonamides
CPT/HCPCS: 99283; 80053; 81003; 81015; 83605; 85025; 87086; 87502; 87811; 93005

== ENCOUNTER 2024-09-26 21:14 | Emergency (ER) | payer OTHER, SELFPAY ==
[2024-09-26 21:41] VITALS: BP 155/88
[2024-09-26] MEDS: MORPHINE SULFATE 4 MG IV (22:32)
[2024-09-26 22:50] LABS: % Basophils 0.7 % (0-2); % Eosinophils 3.9 % (0-6); % Immature Granulocytes 0.3 % (0-0.5); % Monocytes 7.3 % (1.7-9.3); % Neutrophils 65.8 % (42.2-75.2); Absolute Basophils 0.1 10^3/uL (0-0.2); Absolute Eosinophils 0.3 10^3/uL (0-0.7); Absolute Lymphocytes 1.6 10^3/uL (1.2-3.4); Absolute Monocytes 0.5 10^3/uL (0.1-0.6); Absolute Neutrophils 4.9 10^3/uL (1.4-6.5); Hematocrit 38.8 % (39.0-52.0); Hemoglobin 13.2 g/dL (13.0-18.0); Mean Corpuscular Hgb 32.4 pg (27.0-31.0); Mean Corpuscular Volume 95.3 fL (80.0-94.0); Mean Platelet Volume 9.6 fL (7.4-10.4); Nucleated Red Blood Cells % 0 % (-); Platelet Count 227 10^3/uL (130-400); Red Blood Cell Count 4.07 10^6/uL (4.70-6.10); Red Cell Dist. Width 12.9 % (11.5-14.5); White Blood Cell Count 7.4 10^3/uL (4.8-10.8)
[2024-09-26 23:03] LABS: ALT (SGPT) 15 U/L (0-50); AST (SGOT) 21 U/L (17-59); Alkaline Phosphatase 102 U/L (38-126); Blood Urea Nitrogen 28 mg/dl (9-20); Calcium 9.8 mg/dl (8.4-10.2); Carbon Dioxide 27 mmol/L (22-30); Chloride 105 mmol/L (98-107); Glucose 146 mg/dl (70-99); Potassium 4.3 mmol/L (3.5-5.1); Sodium 142 mmol/L (135-145); Total Bilirubin 0.6 mg/dl (0.2-1.3); Total Protein 7.1 g/dl (6.3-8.2); eGFR 45.34
--- NOTE | 2024-09-26 23:22 | ED.GENMED ---
History of Present Illness
General
Chief Complaint: Catheter/Tube Problem
Source: patient, spouse and family (Daughter who is at the bedside)
Exam Limitations: none
Time Seen by Provider: 09/26/24 21:31
Nursing documentation reviewed up to this point in time: agreed with
History of Present Illness
History of Present Illness:
The patient is an 84-year-old man with a past medical history of chronic urinary retention who has his Casas catheter routinely replaced each month according to his . His reports that earlier today, they noticed that his Casas catheter was
in his pants and had slid out. They then called [facility] and a nurse came out to replace the Casas catheter. His reports that the nurse had some difficulty passing the catheter. When she finally passed it, they noticed that no urine was in the
leg bag, rather bright red blood within the bag. Additionally, patient reports increased lower abdominal pressure and burning since she placed this catheter. Patient arrives with no urine in his leg bag and has bright red blood in the leg bag. He
reports excruciating pain to his lower pelvic area and burning in the tip of his penis.
Patient is on no blood thinners. His reports that he is a patient of Dr. Ochoa
Past History
Past History
ED Past Medical History: Cancer (Basal cell CA), Hypercholesterolemia, Hypothyroidism, Other (GI bleeding. Renal calculus, BPH with urinary obstruction, catheter associated UTI May 2024, Sepsis) and Other (Senile dementia, Spinal stenosis, )
ED Past Surgical History: Urological (Stone removed from bladder) and Other (Hernia); Negative Cardiac
Social History
Tobacco: Non-smoker
Alcohol: None
Drug: None
Personal:
Living: with family
Employment: Retired
Family History
Family History: Hypertension
Review of Systems
Review of Systems
Allergies reviewed?: Yes
All Other Systems: ROS reviewed and negative except as documented in HPI and ROS
Constitutional: Reports no symptoms
EENT: Reports no symptoms
Respiratory: Reports no symptoms
Cardiac: Reports no symptoms
ABD/GI: Reports no symptoms
: Reports urgency and bleeding
Musculoskeletal: Reports no symptoms
Skin: Reports no symptoms
Neurological: Reports no symptoms
Endocrine: Reports no symptoms
Hematologic/Lymphatic: Reports no symptoms
Psychiatric: Reports no symptoms
Phy Exam
Physical Exam
Physical Exam:
Physical Exam
General: Patient appears flushed and uncomfortable
Neck: supple. no meningeal signs. normal psoterior pharynx
Heart: s1/s2 regular rate and rhythm,
Lungs: no acute respiratory distress. clear bilaterally
Abdomen: Soft. Pelvic tenderness. Casas catheter in penis with leakage of blood around orifice and blood in leg bag
Neuro: alert and oriented. no focal neurological deficits
Skin: no rash
Psychiatric: well kept. interactive and cooperative
Extremities: no edema.
Course
Orders/Labs/Results
Orders:
Orders
09/26/24 22:22
Tramadol HCl [Ultram] 75 mg PO NOW STA
09/26/24 22:26
Consult Urology [UROLOGY CONSULT] Urgent
Consulting Provider: Delfin Baptiste
Was physician already notified: Yes
Comment: penile bleeding
Morphine Sulfate 4 mg IV NOW STA
09/26/24 22:27
CT Pelvis With Iv Contrast Urgent
Comment:
Reason For Exam: penile bleeding
09/26/24 22:34
Complete Blood Count/With Diff Urgent
Comprehensive Metabolic Panel Urgent
09/26/24 23:48
HYDROmorphone [Dilaudid] 0.5 mg IV NOW STA
09/27/24 00:23
Lidocaine 2% [Lidocaine Uro-Jet 2%] 1 syringe .ROUTE .[facility]
Lidocaine 2% [Lidocaine Uro-Jet 2%] 1 syringe TOPICAL NOW STA
09/27/24 00:50
LevoFLOXacin 500 MG/100 ML [Levaquin] 500 mg in 100 ml IV NOW
Abnormal Lab Results
09/26/24
22:34
RBC 4.07 L 10^6/uL
(4.70-6.10)
Hct 38.8 L %
(39.0-52.0)
MCV 95.3 H fL
(80.0-94.0)
MCH 32.4 H pg
(27.0-31.0)
BUN 28 H mg/dl
(9-20)
Creatinine 1.5 H mg/dL
(0.7-1.3)
Glucose 146 H mg/dl
(70-99)
09/26/24 22:34
09/26/24 22:34
Vital Signs
Initial and Last Documented VS:
Initial Vital Signs
Temp Pulse Resp BP Pulse Ox
98.6 F 79 16 155/88 96
09/26/24 21:41 09/26/24 21:41 09/26/24 21:41 09/26/24 21:41 09/26/24 21:41
Last Documented Vital Signs
Temp Pulse Resp BP Pulse Ox
98.6 F 71 19 98/57 96
09/26/24 21:41 09/27/24 01:45 09/27/24 01:45 09/27/24 01:38 09/26/24 21:41
MDM/Problems Addressed
Differential Diagnosis Includes:
Traumatic insertion of Casas, bladder perforation, prostate trauma
MDM/Problems Addressed:
Patient presents with acute blood from the penis
Chronic conditions affecting care:
Chronic urinary retention
Acute Exacerbation and/or Progression of Chronic Illness:
Patient likely has a chronically large prostate which makes bleeding more likely with traumatic insertion of Casas
*Pulse Oximetry
Patient hypoxic: no
*EKG
Interpreted by ED Provider?: NA
*Clothing Examiner Interpretation
Rate: normal
Interpretation: normal
Rhythm: sinus
*Critical Care Note
Total Time (30-74mins, 75-104mins- exclusive of procedures): Not Applicable
Data Reviewed
Review of Other/Old Records Reveals: Discharge Summary (Discharge summary reviewed from May 2024 which shows patient was admitted for acute UTI)
Source: patient and spouse
Update Note
Update Note:
Patient's bleeding stopped with some gentle pressure. He was watched for several hours without any further bleeding. Dr. Baptiste evaluate the patient at bedside and replaced his Casas catheter.
ED Attending Note
-
Portions of this chart may have been created with voice recognition software.� Occasional wrong word or��sound alike� substitutions may have occurred due to the inherent limitations of voice recognition software.
Discharge Plan
Departure
Patient Disposition: Home (Routine Discharge)
Date of Disposition: 09/27/24
Time of Disposition: 01:20
Patient with high blood pressure during this ER visit?: Yes
Condition: Good
Covid-19: Not Applicable
Discharge Problem:
trauma from insertion of Casas catheter
Instructions: How to Care for Your Casas Catheter, Male, BLOOD PRESSURE
Prescriptions:
New
diazepam [Valium] 2 mg tablet
2 mg PO BID PRN (Reason: muscle spasm) Qty: 7 0RF
No Action
atorvastatin [Lipitor] 10 MG tablet
10 mg PO HS
sennosides [senna] 8.6 mg Tablet
8.6 mg PO Q48H
donepezil 10 mg Tablet
10 mg PO HS
cyanocobalamin (vitamin B-12) 1,000 mcg Tablet
1,000 mcg PO DAILY
therapeutic multivitamin Tablet
1 tab PO DAILY
ciprofloxacin HCl [Cipro] 500 mg Tablet
500 mg PO BID
levothyroxine 125 mcg Tablet
125 mcg PO HS
lansoprazole [Prevacid] 30 mg Capsule,Delayed Release(/Ec)
30 mg PO DAILY
amoxicillin 500 mg Capsule
500 mg PO Q8 Qty: 22 0RF
ciprofloxacin HCl [Cipro] 500 mg tablet
500 mg PO BID Qty: 10 0RF
Referrals:
Esequiel Singh MD [Family Provider] -
Activity Restrictions/Additional Instructions:
Return for increased bleeding from your penis. Please follow-up with Dr. Ochoa as instructed. Return for any fever, chills, or vomiting.
Interventions
Interventions:
*Risk Screen - Suicide Last Done: 09/27/24 00:11
*General Assessment Last Done: 09/26/24 23:58
*Neglect/Abuse Screening Last Done: 09/27/24 00:11
*ED- Fall Risk Assessment Last Done: 09/26/24 23:58
*ED COVID-19 Vaccine History Last Done: 09/26/24 23:58
*Nursing Disposition Last Done: 09/27/24 02:10
RX-Dsmsae-Hobmodcgyv Assessment Last Done: 09/26/24 21:59
ED-Male Genitourinary Assessment Last Done: 09/26/24 21:59
Discharge Date and Time
Discharge Date/Time: 09/27/24 02:10
Print Language: [email or web address]
[2024-09-26 23:47] VITALS: BP 163/71
[2024-09-26] MEDS: DILAUDID 0.5 MG IV (23:56)
[2024-09-27] MEDS: LIDOCAINE URO-JET 2% 1 SYRINGE TOPICAL (00:46)
[2024-09-27] MEDS: LEVAQUIN 100 IV (00:57)
[2024-09-27 01:38] VITALS: BP 98/57
== END 2024-09-27 02:10 | disposition home or self-care (01) ==
LOC: EMR 21:14
PROVIDERS: CONSULT PHYSICIAN Surgery; EMERGENCY PHYSICIAN Emergency Medicine; FAMILY PHYSICIAN Family Medicine
DX: R33.8 Other retention of urine (principal); E78.00 Pure hypercholesterolemia, unspecified; E03.9 Hypothyroidism, unspecified; N40.1 Benign prostatic hyperplasia with lower urinary tract symptoms; F03.90 Unspecified dementia, unspecified severity, without behavioral disturbance, psychotic disturbance, mood disturbance, and anxiety; Z82.49 Family history of ischemic heart disease and other diseases of the circulatory system; Z87.440 Personal history of urinary (tract) infections; Z87.442 Personal history of urinary calculi
CPT/HCPCS: 99284; 51702; 96365; 96375; 72193; 80053; 85025; Q9967

== ENCOUNTER 2025-01-28 01:45 | Emergency (ER) | payer OTHER, SELFPAY ==
[2025-01-28 01:46] VITALS: BP 121/73
--- NOTE | 2025-01-28 02:02 | ED.GENMED ---
History of Present Illness
General
Chief Complaint: Male Genito-Urinary Symptoms
Source: patient
Exam Limitations: none
Time Seen by Provider: 01/28/25 01:58
History of Present Illness
History of Present Illness:
See MDM
Past History
Past History
ED Past Medical History: Cancer (Basal cell CA), Hypercholesterolemia, Hypothyroidism, Other (GI bleeding. Renal calculus, BPH with urinary obstruction, catheter associated UTI May 2024, Sepsis) and Other (Senile dementia, Spinal stenosis, )
ED Past Surgical History: Urological (Stone removed from bladder) and Other (Hernia); Negative Cardiac
Social History
Tobacco: Non-smoker
Alcohol: None
Drug: None
Personal:
Living: with family
Employment: Retired
Family History
Family History: Hypertension
Phy Exam
Physical Exam
Physical Exam:
See MDM
Course
Orders/Labs/Results
Orders:
Orders
01/28/25 02:01
Catheter [Casas Placement- Treatment] ONCE
Reason for insertion: Acute Retention
01/28/25 02:29
Lidocaine 2% [Lidocaine Uro-Jet 2%] 1 syringe .ROUTE .[facility]
01/28/25 02:54
LevoFLOXacin [Levaquin] 500 mg PO NOW STA
Vital Signs
Initial and Last Documented VS:
Initial Vital Signs
Temp Pulse Resp BP Pulse Ox
98.0 F 65 18 121/73 99
01/28/25 01:46 01/28/25 01:46 01/28/25 01:46 01/28/25 01:46 01/28/25 01:46
Last Documented Vital Signs
Temp Pulse Resp BP Pulse Ox
98.0 F 65 18 121/73 99
01/28/25 01:46 01/28/25 01:46 01/28/25 01:46 01/28/25 01:46 01/28/25 02:04
MDM/Problems Addressed
Differential Diagnosis Includes:
Note:
CHIEF COMPLAINT(S)
Dislodged Casas catheter.
HISTORY OF PRESENT ILLNESS
The patient is an 84-year-old male with a history suggestive of benign prostatic hyperplasia (BPH), presenting with issues regarding a Casas catheter. The current catheter was newly placed on Saturday and encountered resistance during insertion,
requiring two attempts. While preparing for a shower, healthcare providers observed a significant loop in the catheter. Subsequently, home nursing services were contacted, and by the time they arrived, the catheter had already been dislodged. The
patient has experienced previous difficulties with catheterization likely due to an enlarged prostate.
PHYSICAL EXAM
General: Alert, no acute distress.
Skin: Warm, dry.
Head: Normocephalic, atraumatic
Neck: Appears supple, trachea midline.
Eyes, Ears, Nose, Mouth, and Throat: Oral mucosa moist.
Cardiovascular: No signs of cyanosis
Respiratory: Respirations are non-labored.
Abdomen: Non-distended
Musculoskeletal: No deformities
Neurological: No focal neurological deficit observed.
Psychiatric: Cooperative, appropriate mood and affect.
PLAN
Attempt re-insertion of the Casas catheter with considerations for potential resistance due to prostatic enlargement.
DIFFERENTIAL DIAGNOSIS
The Differential Diagnosis includes, in no particular order and is not limited to:
1. Benign prostatic hyperplasia
2. Prostate cancer
3. Urethral stricture
4. Bladder stones
5. Urinary tract infection
6. Urethral trauma
7. Neurogenic bladder
8. Bladder outlet obstruction
9. Bladder carcinoma
10. Casas catheter-related complications (e.g., improper placement or size inadequacy)
SUMMARY OF ENCOUNTER
The patient, an 84-year-old male with a history of benign prostatic hyperplasia, presented to the emergency department due to a dislodged Casas catheter. The catheter had been newly placed on Saturday and encountered resistance during insertion. It
was replaced without difficulty with a 20 [place] Casas catheter, the same size as before. The patient received a one-time dose of levofloxacin (Levaquin) in light of multiple recent catheterization attempts.
DISPOSITION
The patient was discharged home with his .
PLAN
The plan involves following up with urology for continued management of difficulties with catheterization due to suspected prostatic enlargement. Return precautions were also discussed with the patients who expressed that she felt comfortable
taking him home.
PATIENT EDUCATION AND COUNSELING
The was advised on return precautions and felt comfortable with taking the patient home.
FOLLOW-UP INSTRUCTIONS
The patient is advised to schedule a follow-up appointment with urology.
MEDICATION RECONCILIATION
A one-time dose of levofloxacin was administered in the ED.
MEDICAL DECISION MAKING
-Complexity of Data Reviewed: Chronic conditions affecting care include benign prostatic hyperplasia. The Differential Diagnosis includes benign prostatic hyperplasia, prostate cancer, urethral stricture, bladder stones, urinary tract infection,
urethral trauma, neurogenic bladder, bladder outlet obstruction, bladder carcinoma, and Casas catheter-related complications.
-Risk:
Consideration of Admission/Observation: Escalation of care including admission/observation was considered given the complexity and risk of the patients presenting complaint, exam findings, and underlying comorbidities. However, ultimately the
patient is safe for outpatient management with close follow-up. Reasoning: Work-up reassuring, does not reveal any acute life/organ-threatening processes, patients symptoms well controlled upon reevaluation, reexamination is reassuring, vitals are
stable, patient agreeable with discharge, reliable for follow-up.
DIAGNOSIS
Benign prostatic hyperplasia (ICD-10: N40.1)
Casas catheter complication (ICD-10: T83.09XA)
Encounter for catheter maintenance (ICD-10: Z46.6)
*Pulse Oximetry
SaO2: 99
Oxygen Mode of Delivery: Room air
Patient hypoxic: no
*Critical Care Note
Total Time (30-74mins, 75-104mins- exclusive of procedures): Not Applicable
ED Attending Note
-
Portions of this chart may have been created with voice recognition software.� Occasional wrong word or��sound alike� substitutions may have occurred due to the inherent limitations of voice recognition software.
Discharge Plan
Departure
Patient Disposition: Home (Routine Discharge)
Date of Disposition: 01/28/25
Time of Disposition: 02:54
Patient with high blood pressure during this ER visit?: No
Discharge Problem:
Complication of Casas catheter
Instructions: How to Care for Your Casas Catheter, Male
Prescriptions:
No Action
atorvastatin [Lipitor] 10 MG tablet
10 mg PO HS
sennosides [senna] 8.6 mg Tablet
8.6 mg PO Q48H
donepezil 10 mg Tablet
10 mg PO HS
cyanocobalamin (vitamin B-12) 1,000 mcg Tablet
1,000 mcg PO DAILY
therapeutic multivitamin Tablet
1 tab PO DAILY
ciprofloxacin HCl [Cipro] 500 mg Tablet
500 mg PO BID
levothyroxine 125 mcg Tablet
125 mcg PO HS
lansoprazole [Prevacid] 30 mg Capsule,Delayed Release(Dr/Ec)
30 mg PO DAILY
amoxicillin 500 mg Capsule
500 mg PO Q8 Qty: 22 0RF
ciprofloxacin HCl [Cipro] 500 mg tablet
500 mg PO BID Qty: 10 0RF
diazepam [Valium] 2 mg tablet
2 mg PO BID PRN (Reason: muscle spasm) Qty: 7 0RF
Referrals:
Esequiel Singh MD [Family Provider, Family Practice]
Activity Restrictions/Additional Instructions:
Please return for any worsening symptoms.
You may return at any time if you have further concerns.
Please follow up with your doctor at the first available appointment, preferably this week.
Thank you for choosing [facility].
Interventions
Interventions:
*Risk Screen - Suicide Last Done: 01/28/25 01:46
*General Assessment Last Done: 01/28/25 01:46
Discharge Date and Time
Print Language: ESTONIAN
[2025-01-28] MEDS: LEVAQUIN 500 MG PO (03:05)
== END 2025-01-28 04:00 | disposition home or self-care (01) ==
LOC: EMR 01:45
PROVIDERS: EMERGENCY PHYSICIAN Student in an Organized Health Care Education/Training Program; FAMILY PHYSICIAN Family Medicine
DX: T83.091A Other mechanical complication of indwelling urethral catheter, initial encounter (principal); X58.XXXA Exposure to other specified factors, initial encounter; E03.9 Hypothyroidism, unspecified; E78.00 Pure hypercholesterolemia, unspecified; F03.90 Unspecified dementia, unspecified severity, without behavioral disturbance, psychotic disturbance, mood disturbance, and anxiety; N40.1 Benign prostatic hyperplasia with lower urinary tract symptoms; Z87.442 Personal history of urinary calculi
CPT/HCPCS: 51702; 99283

== ENCOUNTER 2025-03-10 00:52 | Emergency (ER) | payer OTHER, SELFPAY ==
[2025-03-10 00:55] VITALS: BP 177/90
[2025-03-10 01:37] VITALS: BMI 25.6
[2025-03-10] MEDS: LIDOCAINE URO-JET 2% 1 SYRINGE TOPICAL (01:44)
[2025-03-10 02:07] LABS: Urine Character Clear (Clear)
[2025-03-10 02:09] LABS: Urine Red Blood Cell >100 /HPF (0-2); Urine White Cell 60-70 /HPF (0-5)
[2025-03-10 02:12] LABS: Urine Squamous Cell 0-2 /LPF (Few)
--- NOTE | 2025-03-10 02:16 | ED.GENMED ---
History of Present Illness
General
Chief Complaint: Catheter/Tube Problem
Source: patient and spouse
Exam Limitations: none
Time Seen by Provider: 03/10/25 01:03
Nursing documentation reviewed up to this point in time: agreed with
History of Present Illness
History of Present Illness:
Note:
CHIEF COMPLAINT(S)
Change of urinary catheter and assessment for a recurring urinary tract infection.
HISTORY OF PRESENT ILLNESS
This 84-year-old male patient with a history of bladder stones and recurring urinary tract infections presented with the need for a catheter change. The patient had his most recent catheter change two weeks ago due to clogging. He has been
experiencing urinary retention and discomfort, which are suspected to be due to the presence of bladder stones. The patient has a history of antibiotic use for infections and reported a fungal infection following antibiotic therapy. It was noted
that the patient was last seen at the facility in late January to February for a similar issue.
PAST MEDICAL AND SURGICAL HISTORY
History of bladder stones and recurrent urinary tract infections.
PHYSICAL EXAM
General: Alert, no acute distress.
Skin: Warm, dry.
Head: Normocephalic, atraumatic.
Neck: Supple, trachea midline.
Eye, Ears, Nose, Mouth, and Throat: Oral mucosa moist.
Cardiovascular: Normal peripheral perfusion, No edema.
Respiratory: Respirations are non-labored.
Gastrointestinal: Abdomen nondistended.
Back: Normal range of motion, Normal alignment.
Musculoskeletal: Normal range of motion, normal strength.
Neurological: Alert and oriented to person, place, time, and situation. No focal neurological deficit observed.
Psychiatric: Cooperative, appropriate mood & affect.
PLAN
Proceed with urinary catheter replacement.
Administer antibiotics post-procedural as a preventive measure against infection.
DIFFERENTIAL DIAGNOSIS
The Differential Diagnosis includes, in no particular order and is not limited to:
1. Recurrent urinary tract infection
2. Bladder stones
3. Catheter-associated urinary tract infection
4. Benign prostatic hyperplasia
5. Fungal urinary tract infection
6. Urethral stricture
7. Bladder cancer
8. Chronic prostatitis
9. Interstitial cystitis
10. Neurogenic bladder
Disposition:
SUMMARY OF ENCOUNTER
The 84-year-old male patient presented to the emergency department for a urinary catheter change due to clogging issues. The catheter was successfully replaced, and urine is now flowing freely. A urinalysis was conducted and indicated the presence
of a urinary tract infection (UTI). Consequently, the patient was started on cefpodoxime for treatment.
DISPOSITION
The patient will be discharged home with instructions to follow up with Dr. Abdalla.
INDEPENDENT REVIEW OF LABS AND INTERPRETATION OF TESTS
My independent review of the urinalysis indicates a urinary tract infection.
MEDICATION RECONCILIATION
The patient was started on cefpodoxime.
MEDICAL DECISION MAKING
-Complexity of Data Reviewed: Chronic conditions affecting care include recurrent urinary tract infections and bladder stones. Differential diagnosis considered included recurrent urinary tract infection, bladder stones, and catheter-associated
urinary tract infection.
Category 1
Tests and documents reviewed: Urinalysis confirmed urinary tract infection.
-Risk:
Prescription medication was prescribed: cefpodoxime. Escalation of care including admission/observation was considered given the complexity and risk of the patients presenting complaint and underlying comorbidities. However, ultimately, the patient
is deemed safe for outpatient management with close follow-up. Reasoning: Work-up reassuring, does not reveal any acute life/organ threatening processes, the patients symptoms are well controlled upon reevaluation, reexamination is reassuring,
vitals are stable, the patient agrees with discharge, and is reliable for follow-up.
DIAGNOSIS
1. Urinary tract infection (UTI) - ICD-10: N39.0
2. Urinary catheter clogging - ICD-10: T83.092A
Past History
Past History
ED Past Medical History: Cancer (Basal cell CA), Hypercholesterolemia, Hypothyroidism, Other (GI bleeding. Renal calculus, BPH with urinary obstruction, catheter associated UTI May 2024, Sepsis) and Other (Senile dementia, Spinal stenosis, )
ED Past Surgical History: Urological (Stone removed from bladder) and Other (Hernia); Negative Cardiac
Social History
Tobacco: Non-smoker
Alcohol: None
Drug: None
Personal:
Living: with family
Employment: Retired
Family History
Family History: Hypertension
Phy Exam
Physical Exam
Physical Exam:
.
Course
Orders/Labs/Results
Orders:
Orders
03/10/25 01:25
Lidocaine 2% [Lidocaine Uro-Jet 2%] 1 syringe .ROUTE .[facility]
03/10/25 01:44
Lidocaine 2% [Lidocaine Uro-Jet 2%] 1 syringe TOPICAL NOW STA
03/10/25 01:54
Urine Microscopic Reflex Cult Urgent
Urine Reflex Culture from UA [Urinalysis Reflex To Culture] Urgent
Date Specimen was Collected: 03/10/25
Time Specimen was Collected: 01:53
Urine Culture Urgent
KEVIN Source: U
Specimen Description:
Date Specimen was Collected: 03/10/25
Time Specimen was Collected: 01:53
03/10/25 02:21
Cefuroxime Axetil [Ceftin] 500 mg PO NOW STA
Abnormal Lab Results
03/10/25
01:54
Ur Occult Blood Reflex 4+ A
(Negative)
Urine Nitrite (Reflex) Positive A
(Negative)
Leukocyte Esterase Rfl 3+ A
(Negative)
Urine RBC >100 A /HPF
(0-2)
Urine WBC (Reflex) 60-70 A /HPF
(0-5)
Urine Bacteria (Reflex) Few A
(Negative)
Urine Albumin (Reflex) 3+ A
(Neg - Trace)
Vital Signs
Initial and Last Documented VS:
Initial Vital Signs
Temp Pulse Resp BP Pulse Ox
98.6 F 84 24 177/90 96
03/10/25 00:55 03/10/25 00:55 03/10/25 00:55 03/10/25 00:55 03/10/25 00:55
Last Documented Vital Signs
Temp Pulse Resp BP Pulse Ox
98.6 F 64 18 124/71 94
03/10/25 00:55 03/10/25 02:32 03/10/25 02:32 03/10/25 02:32 03/10/25 02:32
*Pulse Oximetry
SaO2: 96
Patient hypoxic: no
*Critical Care Note
Total Time (30-74mins, 75-104mins- exclusive of procedures): Not Applicable
ED Attending Note
-
Portions of this chart may have been created with voice recognition software.� Occasional wrong word or��sound alike� substitutions may have occurred due to the inherent limitations of voice recognition software.
Discharge Plan
Departure
Patient Disposition: Home (Routine Discharge)
Date of Disposition: 03/10/25
Time of Disposition: 02:16
Patient with high blood pressure during this ER visit?: No
Condition: Good
Discharge Problem:
Acute UTI, Chronic indwelling Casas catheter, Malfunction of indwelling urinary catheter
Instructions: Urinary tract infections in adults, How to Care for Your Casas Catheter, Male
Prescriptions:
New
cefuroxime axetil 500 mg tablet
500 mg PO BID 7 Days Qty: 14 0RF
No Action
atorvastatin [Lipitor] 10 MG tablet
10 mg PO HS
sennosides [senna] 8.6 mg Tablet
8.6 mg PO Q48H
donepezil 10 mg Tablet
10 mg PO HS
cyanocobalamin (vitamin B-12) 1,000 mcg Tablet
1,000 mcg PO DAILY
therapeutic multivitamin Tablet
1 tab PO DAILY
ciprofloxacin HCl [Cipro] 500 mg Tablet
500 mg PO BID
levothyroxine 125 mcg Tablet
125 mcg PO HS
lansoprazole [Prevacid] 30 mg Capsule,Delayed Release(Dr/Ec)
30 mg PO DAILY
amoxicillin 500 mg Capsule
500 mg PO Q8 Qty: 22 0RF
ciprofloxacin HCl [Cipro] 500 mg tablet
500 mg PO BID Qty: 10 0RF
diazepam [Valium] 2 mg tablet
2 mg PO BID PRN (Reason: muscle spasm) Qty: 7 0RF
Referrals:
Esequiel Singh MD [Family Provider, Family Practice]
Interventions
Interventions:
*Risk Screen - Suicide Last Done: 03/10/25 00:55
*General Assessment Last Done: 03/10/25 01:37
*Neglect/Abuse Screening Last Done: 03/10/25 02:03
*ED- Fall Risk Assessment Last Done: 03/10/25 01:37
*ED COVID-19 Vaccine History Last Done: 03/10/25 01:37
*ED Influenza Vaccine History Last Done: 03/10/25 01:37
*Nursing Disposition Last Done: 03/10/25 02:59
UQ-Ckmfgq-Rjjmxepecz Assessment Last Done: 03/10/25 01:56
ED-Male Genitourinary Assessment Last Done: 03/10/25 01:56
Discharge Date and Time
Discharge Date/Time: 03/10/25 02:59
Print Language: INDIAN
[2025-03-10] MEDS: CEFTIN 500 MG PO (02:30)
[2025-03-10 02:32] VITALS: BP 124/71
== END 2025-03-10 02:59 | disposition home or self-care (01) ==
LOC: EMR 00:52
PROVIDERS: EMERGENCY PHYSICIAN Student in an Organized Health Care Education/Training Program; FAMILY PHYSICIAN Family Medicine
DX: N39.0 Urinary tract infection, site not specified (principal); T83.091A Other mechanical complication of indwelling urethral catheter, initial encounter; R33.9 Retention of urine, unspecified; Y73.2 Prosthetic and other implants, materials and accessory gastroenterology and urology devices associated with adverse incidents; F03.90 Unspecified dementia, unspecified severity, without behavioral disturbance, psychotic disturbance, mood disturbance, and anxiety; E78.00 Pure hypercholesterolemia, unspecified; E03.9 Hypothyroidism, unspecified; N40.1 Benign prostatic hyperplasia with lower urinary tract symptoms; N13.8 Other obstructive and reflux uropathy; M48.00 Spinal stenosis, site unspecified; Z87.440 Personal history of urinary (tract) infections; Z87.442 Personal history of urinary calculi; Z85.828 Personal history of other malignant neoplasm of skin
CPT/HCPCS: 99283; 81003; 81015; 87086

== ENCOUNTER 2025-03-31 14:37 | Emergency (ER) | payer OTHER, SELFPAY ==
[2025-03-31 14:40] VITALS: BP 123/74
[2025-03-31 16:14] VITALS: BP 132/64
--- NOTE | 2025-03-31 16:32 | ED.GENMED ---
History of Present Illness
General
Chief Complaint: Urinary Symptoms
Source: patient and spouse
Exam Limitations: none
Time Seen by Provider: 03/31/25 16:21
Nursing documentation reviewed up to this point in time: agreed with
History of Present Illness
History of Present Illness:
Patient to the emergency department for evaluation of hematuria. According to the mild hematuria was first noted approximately 5 days ago. He has a Casas catheter in place for urinary retention. Spouse was able to take a sample of the urine
to [facility] on Saturday. Culture result positive for Morganella. Patient's forward results to Dr. Ochoa and patient was placed on Cipro Saturday night. He has had 3 doses however reports hematuria is worsening. She reports low-grade
fever at home. He is eating and drinking normally, mentation is unchanged. Patient's spouse became concerned that hematuria was worsening so she brought him to the emergency department for further evaluation. He is scheduled for his routine
catheter change on Saturday. Spouse is requesting that Casas be changed in the emergency department today.
Past History
Past History
ED Past Medical History: Cancer (Basal cell CA), Hypercholesterolemia, Hypothyroidism, Other (GI bleeding. Renal calculus, BPH with urinary obstruction, catheter associated UTI May 2024, Sepsis) and Other (Senile dementia, Spinal stenosis, )
ED Past Surgical History: Urological (Stone removed from bladder) and Other (Hernia); Negative Cardiac
Social History
Tobacco: Non-smoker
Alcohol: None
Drug: None
Personal:
Living: with family
Employment: Retired
Family History
Family History: Hypertension
Review of Systems
Review of Systems
Allergies reviewed?: Yes
All Other Systems: ROS reviewed and negative except as documented in HPI and ROS
Constitutional: Reports fever (Low-grade temp at home max 100.2)
EENT: Reports no symptoms
Respiratory: Reports no symptoms
Cardiac: Reports no symptoms
ABD/GI: Reports no symptoms
: Reports bleeding (Hematuria without clots)
Musculoskeletal: Reports no symptoms
Skin: Reports no symptoms
Neurological: Reports no symptoms
Psychiatric: Reports no symptoms
Phy Exam
General Physical Exam
General Presentation: well appearing and no apparent distress
General age: appears stated age
General Skin: warm and dry
General Habitus: normal
General Mental: alert
ENT Exam
ENT Exam: other (Dental extraction today. No active bleeding)
Gastrointestinal Exam
Gastrointestinal Exam: non tender and soft
Neurological Exam
Neurological Exam: alert and oriented x3
Musculoskeletal Exam
Musculoskeletal Exam: full ROM and neuro vasc intact
Skin Exam
Skin Exam: normal color, warm/dry and no rash
Psychiatric Exam
Psychiatric Exam: normal mood/affect
Course
Orders/Labs/Results
Orders:
Orders
03/31/25 17:32
Lidocaine 2% [Lidocaine Uro-Jet 2%] 1 syringe .ROUTE .[facility]
03/31/25 17:43
Casas Placement- Treatment ONCE
Reason for insertion: Chronic Casas on Admit
03/31/25 17:49
Lidocaine 2% [Lidocaine Uro-Jet 2%] 1 syringe TOPICAL NOW STA
03/31/25 17:56
Complete Blood Count/With Diff Urgent
Comprehensive Metabolic Panel Urgent
Urinalysis Reflex To Culture Urgent
Date Specimen was Collected: 03/31/25
Time Specimen was Collected: 16:59
Urine Microscopic Reflex Cult Urgent
Urine Culture Urgent
KEVIN Source: U
Specimen Description:
Date Specimen was Collected: 03/31/25
Time Specimen was Collected: 16:59
Abnormal Lab Results
03/31/25
17:56
RBC 4.39 L 10^6/uL
(4.70-6.10)
MCV 98.4 H fL
(80.0-94.0)
MCH 32.3 H pg
(27.0-31.0)
MCHC 32.9 L g/dL
(33.0-37.0)
Absolute Monos (auto) 0.7 H 10^3/uL
(0.1-0.6)
Lymphocytes % 20.1 L %
(20.5-51.1)
Monocytes % 10.2 H %
(1.7-9.3)
BUN 22 H mg/dl
(9-20)
Creatinine 1.5 H mg/dL
(0.7-1.3)
Glucose 112 H mg/dl
(70-99)
Ur Occult Blood Reflex 4+ A
(Negative)
Urine Nitrite (Reflex) Positive A
(Negative)
Leukocyte Esterase Rfl 3+ A
(Negative)
Urine RBC >100 A /HPF
(0-2)
Urine Albumin (Reflex) 3+ A
(Neg - Trace)
03/31/25 17:56
03/31/25 17:56
Vital Signs
Initial and Last Documented VS:
Initial Vital Signs
Temp Pulse Resp BP Pulse Ox
97.7 F 63 20 123/74 98
03/31/25 14:40 03/31/25 14:40 03/31/25 14:40 03/31/25 14:40 03/31/25 14:40
Last Documented Vital Signs
Temp Pulse Resp BP Pulse Ox
97.7 F 72 16 116/68 98
03/31/25 14:40 03/31/25 18:00 03/31/25 18:00 03/31/25 17:00 03/31/25 18:00
*Pulse Oximetry
SaO2: 98
Oxygen Mode of Delivery: Room air
Patient hypoxic: no
*Critical Care Note
Total Time (30-74mins, 75-104mins- exclusive of procedures): Not Applicable
Update Note
Update Note:
Patient to emergency department for evaluation of hematuria. Patient with chronic indwelling Casas catheter. noted hematuria starting on Saturday. She was able to send a urine sample to [facility] on Saturday. Urine culture positive for Morganella.
He was started on Cipro Saturday evening by Dr. Ochoa, he has had 3 doses. reports hematuria is still present although less than prior. Casas catheter was changed by RN as he is due for his scheduled catheter change. Urinalysis sent, +4
RBCs noted. WBCs unable to be evaluated due to RBC content. Vital signs are stable he remains afebrile in ED labs reviewed WBC is normal. He is awake alert cooperative nontoxic-appearing. Will discharge home and he was instructed to continue his
Cipro as prescribed by Dr. Ochoa. (Sensitivity viewed, suseptible to Cipro). Patient and spouse were given instructions on signs and symptoms to return to the emergency department and they are agreeable to plan
ED Attending Note
-
Portions of this chart may have been created with voice recognition software.� Occasional wrong word or��sound alike� substitutions may have occurred due to the inherent limitations of voice recognition software.
Discharge Plan
Departure
Patient Disposition: Home (Routine Discharge)
Date of Disposition: 03/31/25
Time of Disposition: 18:35
Patient with high blood pressure during this ER visit?: No
Condition: Good
Covid-19: Not Applicable
Discharge Problem:
Hematuria
Instructions: How to Care for Your Casas Catheter, Male, Blood in the Urine (Hematuria), Adult (DC)
Prescriptions:
No Action
atorvastatin [Lipitor] 10 MG tablet
10 mg PO HS
sennosides [senna] 8.6 mg Tablet
8.6 mg PO Q48H
donepezil 10 mg Tablet
10 mg PO HS
cyanocobalamin (vitamin B-12) 1,000 mcg Tablet
1,000 mcg PO DAILY
therapeutic multivitamin Tablet
1 tab PO DAILY
ciprofloxacin HCl [Cipro] 500 mg Tablet
500 mg PO BID
levothyroxine 125 mcg Tablet
125 mcg PO HS
lansoprazole [Prevacid] 30 mg Capsule,Delayed Release(Dr/Ec)
30 mg PO DAILY
amoxicillin 500 mg Capsule
500 mg PO Q8 Qty: 22 0RF
ciprofloxacin HCl [Cipro] 500 mg tablet
500 mg PO BID Qty: 10 0RF
diazepam [Valium] 2 mg tablet
2 mg PO BID PRN (Reason: muscle spasm) Qty: 7 0RF
cefuroxime axetil 500 mg tablet
500 mg PO BID 7 Days Qty: 14 0RF
Referrals:
Esequiel Singh MD [Family Provider, Family Practice]
Activity Restrictions/Additional Instructions:
Continue Cipro as prescribed. Increase your water intake. Follow-up with Dr. Ochoa as scheduled. Return to the emergency department for any changes in/worsening of your symptoms
Interventions
Interventions:
*Risk Screen - Suicide Last Done: 03/31/25 14:40
*General Assessment Last Done: 03/31/25 14:40
*Neglect/Abuse Screening Last Done: 03/31/25 14:40
*ED- Fall Risk Assessment Last Done: 03/31/25 17:56
*ED COVID-19 Vaccine History Last Done: 03/31/25 17:56
*ED Influenza Vaccine History Last Done: 03/31/25 17:56
ED-Male Genitourinary Assessment Last Done: 03/31/25 18:00
Discharge Date and Time
Print Language: CZECH
[2025-03-31 17:00] VITALS: BP 116/68
[2025-03-31] MEDS: LIDOCAINE URO-JET 2% 1 SYRINGE TOPICAL (17:50)
[2025-03-31 17:57] VITALS: BMI 27.2
[2025-03-31 18:00] VITALS: BP 128/65
--- NOTE | 2025-03-31 18:01 | EDRN ---
Casas exchanged in ER per order.
[2025-03-31 18:05] LABS: Urine Character Cloudy (Clear)
[2025-03-31 18:11] LABS: Hematocrit 43.2 % (39.0-52.0); Hemoglobin 14.2 g/dL (13.0-18.0); Mean Corp Hgb Conc. 32.9 g/dL (33.0-37.0); Mean Corpuscular Volume 98.4 fL (80.0-94.0); Nucleated Red Blood Cells % 0 % (-); Platelet Count 205 10^3/uL (130-400); Red Cell Dist. Width 12.1 % (11.5-14.5)
[2025-03-31 18:12] LABS: Urine Red Blood Cell >100 /HPF (0-2); Urine Squamous Cell 0-2 /LPF (Few)
[2025-03-31 18:27] LABS: ALT (SGPT) 16 U/L (0-50); AST (SGOT) 21 U/L (17-59); Albumin 4.1 g/dl (3.5-5.0); Alkaline Phosphatase 105 U/L (38-126); Blood Urea Nitrogen 22 mg/dl (9-20); Calcium 9.4 mg/dl (8.4-10.2); Carbon Dioxide 27 mmol/L (22-30); Chloride 102 mmol/L (98-107); Estimated Creatinine Clearance 35 ml/min; Glucose 112 mg/dl (70-99); Potassium 4.5 mmol/L (3.5-5.1); Sodium 135 mmol/L (135-145); Total Protein 7.2 g/dl (6.3-8.2); eGFR 45.34
== END 2025-03-31 19:00 | disposition home or self-care (01) ==
LOC: EMR 14:37
PROVIDERS: Nurse Practitioner; EMERGENCY PHYSICIAN Emergency Medicine; FAMILY PHYSICIAN Family Medicine
DX: R31.9 Hematuria, unspecified (principal); Z46.6 Encounter for fitting and adjustment of urinary device; E03.9 Hypothyroidism, unspecified; E78.00 Pure hypercholesterolemia, unspecified; Z87.442 Personal history of urinary calculi; Z87.440 Personal history of urinary (tract) infections
CPT/HCPCS: 51702; 99283; 80053; 81003; 81015; 85025; 87077; 87086; 87186

== ENCOUNTER → 2025-05-05 12:08 | Outpatient (REF) | payer OTHER, SELFPAY | LOC: REG 12:08 | PROVIDERS: ATTENDING PHYSICIAN Specialist; FAMILY PHYSICIAN Family Medicine | DX: N20.0 Calculus of kidney (principal); N39.0 Urinary tract infection, site not specified; N21.0 Calculus in bladder | CPT/HCPCS: 74018 ==